=== PATIENT | male | born 1950 | race Caucasian/White ===

== ENCOUNTER 2016-09-11 12:06 | Emergency (ER) | payer MEDICARE, BC ==
[~2016-09-11] VITALS: Ht 180.3 cm; Wt 111.5 kg
[2016-09-11 12:06] VITALS: Ht 180.3 cm; Wt 111.5 kg
[~2016-09-11 12:06] MED LIST: ACET-2321 PO; ALLO300T2 PO; AMLO5TAB PO; ASPI-917 PO; CHOL100092 PO; FLEC100T21 PO; GABA-336 PO; LOSA25TA34 PO; OXYC5TAB84 PO; POLY17PO18 PO; TORS10TA17 PO; [UNRECOGNIZED DRUG - CODE] PO
--- NOTE | 2016-09-11 12:10 | NUR ---
EKG OBTAINED AND RESULTS GIVEN TO Hussein STERN APRN A-FIB WITH HR 122 NOTED
--- OUTSIDE RECORDS SUMMARY | 2016-09-11 12:10 | XMS REPORT ---
Author Author [place], [facility] - Organization Unknown Address Unknown Phone Unavailable Allergies, Adverse Reactions, Alerts * Codeine causes nausea/vomitting. * Lortab causes NAUSEA/VOMITING and Unknown NAUSEA/VOMITING. * Demerol causes NAUSEA/VOMITING. * Morphine causes NAUSEA/VOMITING. * No Latex Allergy. * No IV Contrast Allergy. * No Known Food Allergies. Problems * Cellulitis of Leg* Status:Active. * Empyema* Status:Resolved. * Knowledge Low Level* Status:Active. * Pain* Status:Active. * Pleural Effusion* Status:Resolved. * Sinus Bradycardia* Status:Active. * Skin Integrity Impairment* Status:Active. * Tissue Perfusion Impairment* Status:Active. Procedures No relevant procedures performed. Medication It is the responsibility of the patient or patient malt liquors sales representative to confirm the list of medications with either the patient's personal care provider or the patient's follow-up care provider to ensure the patient has an appropriate list of medications to take at home. Discharge medications* VANCOMYCIN 1 GM IN NS 250ML Intravenous Q24H, Clinician Dir:INFUSE OVER 60 MINUTES x 7 days * torsemide 20 mg Tablet, Ordered By: Tracy Wong Directions: 1 tablet oral daily * potassium chloride (Klor-Con M20) 20 mEq tablet,ER particles/crystals, Ordered By: Tracy Wong Directions: 1 tablet oral twice a day during meal * oxyCODONE-acetaminophen (Percocet) 5 mg-325 mg Tablet, Ordered By: Tracy Wong Directions: 1-2 TABS oral every four hours PRN MODERATE PAIN * epoetin sasha (Epogen) 10,000 unit/mL Solution, Ordered By: Tracy Wong Directions: 1 mL subcutaneous every Thursday Additional Instructions: GIVE ON TUESDAYS .outpatient with Dr Curtis's office * cyclophosphamide 50 mg Tablet, Ordered By: Tracy Wong Directions: 2 tablet oral daily * clindamycin HCl 150 mg Capsule, Ordered By: Tracy Wong Directions: 3 capsule oral every eight hours Additional Instructions: x 7 more days * calcium carbonate 200 mg calcium (500 mg) Tablet, Chewable, Ordered By: Tracy Wong Directions: 2 tablet oral twice a day * amLODIPine 5 mg Tablet, Ordered By: Tracy Wong Directions: 1 tablet oral daily * allopurinol 300 mg Tablet, Ordered By: Tracy Wong Directions: 1 tablet oral daily with dinner * acetaminophen (Mapap (acetaminophen)) 325 mg Tablet, Ordered By: Tracy Wong Directions: 325-650 MG oral every four hours PRN MILD PAIN AND/OR FEVER * saw palmetto 450mg Capsule, Ordered By: Tracy Wong Directions: 1 capsule oral twice a day * OTC Metamucil 1 tablespoon oral daily as needed for constipation; Last dose taken at home: few days ago * Eliquis 5mg 1 tablet oral twice a day; Last dose taken at home: 02/01/2013 AM * OTC Fish Oil 1000 mg 1 capsule oral twice a day; Last dose taken at home: 02/01 AM * Follow up with Dr Curtis in 1 week. Follow up with Dr Mcgowan 02/16/13 at 10 am. Follow up with Dr Elizondo in [place] in 1 week. * flecainide 100 mg Tablet, Ordered By: Tracy Wong Directions: 1 tablet oral twice a day Stopped medications* amoxicillin-pot clavulanate (Augmentin) 875 mg-125 mg Tablet Directions: 1 tablet oral twice a day Additional Instructions: x 10 days * losartan 100 mg Tablet Directions: 1 tablet oral daily * metoLAZOne 2.5 mg Tablet Directions: 1 tablet oral daily PRN shortness of breath * Stopped Medication: IV Solunedrol; Regamin complete: 12/28/2012 - 12/30/2012 * Stopped Medication: Prednisone 50mg oral daily; Regamin complete: 12/31/2012 - 01/25/2013 Results LAB--CHEMISTRY from 02/01/2013 8:45 PMProtein 4.4 g/dL L (6.1-7.9 g/dL) C-Reactive Protein (CRP) 6.8 mg/dL H (0.0-0.9 mg/dL) Sodium 140 mEq/L (136-144 mEq/L) Magnesium 1.9 mg/dL (1.8-2.5 mg/dL) Potassium 4.5 mEq/L (3.6-5.1 mEq/L) Glucose 95 mg/dL (70-100 mg/dL) Globulin 2.9 g/dL (1.9-4.3 g/dL) eGFR 38 A (>60- ) Creatinine 1.81 mg/dL H (0.64-1.27 mg/dL) CO2 29 mEq/L (22-32 mEq/L) Chloride 102 mEq/L (99-109 mEq/L) Calcium 7.8 mg/dL L (8.6-10.0 mg/dL) BUN 31 mg/dL H (4-20 mg/dL) Bilirubin Total 0.8 mg/dL (0.2-1.2 mg/dL) AST (SGOT) 22 U/L (15-41 U/L) ALT (SGPT) 17 U/L (17-63 U/L) Alkaline Phosphatase 41 U/L (26-104 U/L) Albumin 1.5 g/dL L (3.5-4.8 g/dL) Anion Gap 9 (3-20 ) LAB--CHEMISTRY from 02/02/2013 5:38 AMPhosphorus 4.4 mg/dL (2.4-4.7 mg/dL) Sodium 139 mEq/L (136-144 mEq/L) Magnesium 1.9 mg/dL (1.8-2.5 mg/dL) Potassium 4.3 mEq/L (3.6-5.1 mEq/L) Glucose 95 mg/dL (70-100 mg/dL) eGFR 39 A (>60- ) Creatinine 1.78 mg/dL H (0.64-1.27 mg/dL) CO2 28 mEq/L (22-32 mEq/L) Chloride 105 mEq/L (99-109 mEq/L) Calcium 7.4 mg/dL L (8.6-10.0 mg/dL) BUN 30 mg/dL H (4-20 mg/dL) Albumin 1.4 g/dL L (3.5-4.8 g/dL) Anion Gap 6 (3-20 ) LAB--CHEMISTRY from 02/02/2013 1:41 PMPercent Saturation 16 % (11-46 %) Iron Binding Capacity 173 ug/dL L (268-490 ug/dL) Transferrin 116 mg/dL L (180-329 mg/dL) Iron 28 ug/dL L (65-175 ug/dL) Ferritin 454 ng/mL H (24-340 ng/mL) Folate 19.8 ng/mL (2.0-20.0 ng/mL) Vitamin B12 524 pg/mL (211-911 pg/mL) LAB--CHEMISTRY from 02/03/2013 5:50 AMPhosphorus 4.2 mg/dL (2.4-4.7 mg/dL) Sodium 138 mEq/L (136-144 mEq/L) Magnesium 1.9 mg/dL (1.8-2.5 mg/dL) Potassium 4.0 mEq/L (3.6-5.1 mEq/L) Glucose 98 mg/dL (70-100 mg/dL) eGFR 37 A (>60- ) Creatinine 1.86 mg/dL H (0.64-1.27 mg/dL) CO2 28 mEq/L (22-32 mEq/L) Chloride 105 mEq/L (99-109 mEq/L) Calcium Ionized 1.14 mmol/L L (1.19-1.41 mmol/L) Calcium 7.3 mg/dL L (8.6-10.0 mg/dL) BUN 31 mg/dL H (4-20 mg/dL) Albumin 1.7 g/dL L (3.5-4.8 g/dL) Anion Gap 5 (3-20 ) LAB--CHEMISTRY from 02/04/2013 5:00 AMPhosphorus 4.0 mg/dL (2.4-4.7 mg/dL) Sodium 137 mEq/L (136-144 mEq/L) Magnesium 2.1 mg/dL (1.8-2.5 mg/dL) Potassium 3.5 mEq/L L (3.6-5.1 mEq/L) Glucose 102 mg/dL H (70-100 mg/dL) eGFR 36 A (>60- ) Creatinine 1.91 mg/dL H (0.64-1.27 mg/dL) CO2 27 mEq/L (22-32 mEq/L) Chloride 107 mEq/L (99-109 mEq/L) Calcium Ionized 1.13 mmol/L L (1.19-1.41 mmol/L) Calcium 7.3 mg/dL L (8.6-10.0 mg/dL) BUN 32 mg/dL H (4-20 mg/dL) Albumin 2.0 g/dL L (3.5-4.8 g/dL) Anion Gap 3 (3-20 ) LAB--CHEMISTRY from 02/05/2013 6:20 AMPhosphorus 4.0 mg/dL (2.4-4.7 mg/dL) Sodium 141 mEq/L (136-144 mEq/L) Magnesium 2.2 mg/dL (1.8-2.5 mg/dL) Potassium 3.7 mEq/L (3.6-5.1 mEq/L) Glucose 101 mg/dL H (70-100 mg/dL) eGFR 31 A (>60- ) Creatinine 2.15 mg/dL H (0.64-1.27 mg/dL) CO2 27 mEq/L (22-32 mEq/L) Chloride 104 mEq/L (99-109 mEq/L) Calcium Ionized 1.13 mmol/L L (1.19-1.41 mmol/L) Calcium 7.4 mg/dL L (8.6-10.0 mg/dL) BUN 30 mg/dL H (4-20 mg/dL) Albumin 2.2 g/dL L (3.5-4.8 g/dL) Anion Gap 10 (3-20 ) LAB--CHEMISTRY from 02/06/2013 6:51 AMPhosphorus 4.3 mg/dL (2.4-4.7 mg/dL) Sodium 140 mEq/L (136-144 mEq/L) Magnesium 2.2 mg/dL (1.8-2.5 mg/dL) Potassium 3.6 mEq/L (3.6-5.1 mEq/L) Glucose 104 mg/dL H (70-100 mg/dL) eGFR 26 A (>60- ) Creatinine 2.49 mg/dL H (0.64-1.27 mg/dL) CO2 26 mEq/L (22-32 mEq/L) Chloride 105 mEq/L (99-109 mEq/L) Calcium Ionized 1.13 mmol/L L (1.19-1.41 mmol/L) Calcium 7.4 mg/dL L (8.6-10.0 mg/dL) BUN 34 mg/dL H (4-20 mg/dL) Albumin 2.0 g/dL L (3.5-4.8 g/dL) Anion Gap 9 (3-20 ) LAB--CHEMISTRY from 02/07/2013 5:27 AMAnion Gap 6 (3-20 ) Albumin 1.8 g/dL L (3.5-4.8 g/dL) BUN 29 mg/dL H (4-20 mg/dL) Calcium 7.3 mg/dL L (8.6-10.0 mg/dL) Calcium Ionized 1.18 mmol/L L (1.19-1.41 mmol/L) Chloride 107 mEq/L (99-109 mEq/L) CO2 26 mEq/L (22-32 mEq/L) Creatinine 2.08 mg/dL H (0.64-1.27 mg/dL) eGFR 32 A (>60- ) Glucose 104 mg/dL H (70-100 mg/dL) Potassium 3.7 mEq/L (3.6-5.1 mEq/L) Magnesium 2.3 mg/dL (1.8-2.5 mg/dL) Sodium 139 mEq/L (136-144 mEq/L) Phosphorus 3.7 mg/dL (2.4-4.7 mg/dL) C-Reactive Protein (CRP) 5.2 mg/dL H (0.0-0.9 mg/dL) LAB--CHEMISTRY from 02/08/2013 6:03 AMAnion Gap 5 (3-20 ) Albumin 1.7 g/dL L (3.5-4.8 g/dL) BUN 24 mg/dL H (4-20 mg/dL) Calcium 7.3 mg/dL L (8.6-10.0 mg/dL) Calcium Ionized 1.16 mmol/L L (1.19-1.41 mmol/L) Chloride 107 mEq/L (99-109 mEq/L) CO2 26 mEq/L (22-32 mEq/L) Creatinine 1.89 mg/dL H (0.64-1.27 mg/dL) eGFR 36 A (>60- ) Glucose 90 mg/dL (70-100 mg/dL) Potassium 4.0 mEq/L (3.6-5.1 mEq/L) Magnesium 2.4 mg/dL (1.8-2.5 mg/dL) Sodium 138 mEq/L (136-144 mEq/L) Phosphorus 3.5 mg/dL (2.4-4.7 mg/dL) LAB--HEMATOLOGY from 02/01/2013 8:45 PMHCT 31.6 % L (42.0-52.0 %) HGB 10.5 g/dl L (14.0-18.0 g/dl) MCH 30.0 pg (27.0-32.0 pg) MCHC 33.2 g/dL (32.0-36.0 g/dL) MCV 90.3 fL (82.0-99.0 fL) MPV 9.3 fL L (9.4-12.3 fL) Platelet Count 111 K/uL L (150-400 K/uL) RBC 3.50 M/uL L (4.60-6.20 M/uL) RDW 14.3 % (11.5-14.5 %) WBC 7.9 K/uL (4.8-10.8 K/uL) LAB--HEMATOLOGY from 02/02/2013 5:38 AMHCT 31.1 % L (42.0-52.0 %) HGB 10.1 g/dl L (14.0-18.0 g/dl) MCH 29.0 pg (27.0-32.0 pg) MCHC 32.5 g/dL (32.0-36.0 g/dL) MCV 89.4 fL (82.0-99.0 fL) MPV 10.1 fL (9.4-12.3 fL) Platelet Count 115 K/uL L (150-400 K/uL) RBC 3.48 M/uL L (4.60-6.20 M/uL) RDW 14.2 % (11.5-14.5 %) WBC 6.5 K/uL (4.8-10.8 K/uL) LAB--HEMATOLOGY from 02/02/2013 1:41 PMReticulocyte Count 2.0 % (0.6-2.5 %) LAB--HEMATOLOGY from 02/03/2013 5:49 AMWBC 5.9 K/uL (4.8-10.8 K/uL) RDW 14.1 % (11.5-14.5 %) RBC 3.20 M/uL L (4.60-6.20 M/uL) Platelet Count 120 K/uL L (150-400 K/uL) MPV 9.7 fL (9.4-12.3 fL) MCV 88.8 fL (82.0-99.0 fL) MCHC 32.7 g/dL (32.0-36.0 g/dL) MCH 29.1 pg (27.0-32.0 pg) HGB 9.3 g/dl L (14.0-18.0 g/dl) HCT 28.4 % L (42.0-52.0 %) LAB--HEMATOLOGY from 02/04/2013 5:00 AMHCT 26.0 % L (42.0-52.0 %) HGB 8.6 g/dl L (14.0-18.0 g/dl) MCH 29.4 pg (27.0-32.0 pg) MCHC 33.1 g/dL (32.0-36.0 g/dL) MCV 88.7 fL (82.0-99.0 fL) MPV 9.2 fL L (9.4-12.3 fL) Platelet Count 134 K/uL L (150-400 K/uL) RBC 2.93 M/uL L (4.60-6.20 M/uL) RDW 14.2 % (11.5-14.5 %) WBC 5.1 K/uL (4.8-10.8 K/uL) LAB--HEMATOLOGY from 02/05/2013 6:20 AMWBC 4.8 K/uL (4.8-10.8 K/uL) RDW 14.1 % (11.5-14.5 %) RBC 2.80 M/uL L (4.60-6.20 M/uL) Platelet Count 153 K/uL (150-400 K/uL) MPV 9.4 fL (9.4-12.3 fL) MCV 89.3 fL (82.0-99.0 fL) MCHC 32.8 g/dL (32.0-36.0 g/dL) MCH 29.3 pg (27.0-32.0 pg) HGB 8.2 g/dl L (14.0-18.0 g/dl) HCT 25.0 % L (42.0-52.0 %) LAB--HEMATOLOGY from 02/06/2013 6:51 AMHCT 24.2 % L (42.0-52.0 %) HGB 8.2 g/dl L (14.0-18.0 g/dl) MCH 29.9 pg (27.0-32.0 pg) MCHC 33.9 g/dL (32.0-36.0 g/dL) MCV 88.3 fL (82.0-99.0 fL) MPV 9.5 fL (9.4-12.3 fL) Platelet Count 164 K/uL (150-400 K/uL) RBC 2.74 M/uL L (4.60-6.20 M/uL) RDW 14.3 % (11.5-14.5 %) WBC 4.3 K/uL L (4.8-10.8 K/uL) LAB--HEMATOLOGY from 02/07/2013 5:28 AMWBC 3.4 K/uL L (4.8-10.8 K/uL) RDW 14.2 % (11.5-14.5 %) RBC 2.86 M/uL L (4.60-6.20 M/uL) Platelet Count 174 K/uL (150-400 K/uL) MPV 9.1 fL L (9.4-12.3 fL) MCV 87.8 fL (82.0-99.0 fL) MCHC 33.5 g/dL (32.0-36.0 g/dL) MCH 29.4 pg (27.0-32.0 pg) HGB 8.4 g/dl L (14.0-18.0 g/dl) HCT 25.1 % L (42.0-52.0 %) LAB--HEMATOLOGY from 02/08/2013 6:03 AMHCT 25.6 % L (42.0-52.0 %) HGB 8.5 g/dl L (14.0-18.0 g/dl) MCH 29.2 pg (27.0-32.0 pg) MCHC 33.2 g/dL (32.0-36.0 g/dL) MCV 88.0 fL (82.0-99.0 fL) MPV 9.1 fL L (9.4-12.3 fL) Platelet Count 217 K/uL (150-400 K/uL) RBC 2.91 M/uL L (4.60-6.20 M/uL) RDW 14.3 % (11.5-14.5 %) WBC 4.0 K/uL L (4.8-10.8 K/uL) LAB--IMMUNOLOGY from 02/06/2013 6:28 PMProtein mg/dL, Urine >1500 mg/dL H (0-9 mg /dL) LAB--MICROBIOLOGY from 02/01/2013 8:40 PMBlood Culture #1 Source: Blood Collected: 02/01/13 20:40 Site: Received : 02/01/13 20:50 Order#: [id number] Blood Culture #1 FINAL 02/07/13 10:15 No growth after 5 days of incubation. HANEY FOR RESULTS: * - NEW RESULT - RESULT WAS MODIFIED AFTER FINAL STATUS SET LAB--MICROBIOLOGY from 02/01/2013 8:45 PMBlood Culture #2 Source: Blood Collected: 02/01/13 20:45 Site: Received : 02/01/13 20:50 Order#: [id number] Blood Culture #2 FINAL 02/07/13 10:15 No growth after 5 days of incubation. HANEY FOR RESULTS: * - NEW RESULT - RESULT WAS MODIFIED AFTER FINAL STATUS SET LAB--TOXICOLOGY & THERAPEUTIC DRUGS from 02/02/2013 1:41 PMVancomycin Random 6.6 ug/mL L (10.0-40.0 ug/mL) LAB--TOXICOLOGY & THERAPEUTIC DRUGS from 02/03/2013 5:50 AMVancomycin Random 10.0 ug/mL (10.0-40.0 ug/mL) LAB--TOXICOLOGY & THERAPEUTIC DRUGS from 02/04/2013 5:00 AMVancomycin Random 11.2 ug/mL (10.0-40.0 ug/mL) LAB--TOXICOLOGY & THERAPEUTIC DRUGS from 02/05/2013 6:20 AMVancomycin Random 12.1 ug/mL (10.0-40.0 ug/mL) LAB--TOXICOLOGY & THERAPEUTIC DRUGS from 02/06/2013 6:51 AMVancomycin Random 13.2 ug/mL (10.0-40.0 ug/mL) LAB--URINE TESTS from 02/01/2013 11:00 PMWBC 2-5 /HPF (0-4 /HPF) RBC 2-5 /HPF (0-2 /HPF) Mucus Present Hyaline Casts 1-3 /LPF (0-3 /LPF) Epithelial Cells 0-2 /HPF Bacteria Numerous A Urobilinogen Negative mg/dL (-<1.0 mg/dL) Collection Type: Clean Catch Specific [place] 1.022 (1.003-1.030 ) Protein Pos 3+ A (Negative ) pH, Urine 7.0 (5.0-8.0 ) Nitrites Negative (Negative ) Leukocytes Esterase Negative (Negative ) Ketones, Urine Negative (Negative ) Glucose Trace A (Negative ) Color Yellow Blood Pos 1+ A (Negative ) Bilirubin Negative (Negative ) Appearance Clear LAB--URINE TESTS from 02/06/2013 6:28 PMProt/Creat Ratio, Urine NA Protein mg/dL, Urine >1500 mg/dL H (0-9 mg/dL) Creatinine mg/dL, Urine 131 mg/dL LAB--URINE TESTS from 02/07/2013 3:42 AMWBC 0-2 /HPF (0-4 /HPF) RBC 2-5 /HPF (0-2 /HPF) Mucus Present Epithelial Cells 0-2 /HPF Bacteria Moderate A Urobilinogen Negative mg/dL (-<1.0 mg/dL) Collection Type: Clean Catch Specific [place] 1.024 (1.003-1.030 ) Protein Pos 3+ A (Negative ) pH, Urine 7.0 (5.0-8.0 ) Nitrites Negative (Negative ) Leukocytes Esterase Negative (Negative ) Ketones, Urine Negative (Negative ) Glucose Pos 1+ A (Negative ) Color Yellow Blood Trace A (Negative ) Bilirubin Negative (Negative ) Appearance Clear
--- OUTSIDE RECORDS SUMMARY | 2016-09-11 12:10 | XMS REPORT ---
Author Author [facility], [facility] - [facility] Unknown Address Unknown Phone Unavailable Allergies, Adverse Reactions, Alerts * Codeine causes nausea/vomitting. * Lortab causes NAUSEA/VOMITING and Unknown NAUSEA/VOMITING. * Demerol causes NAUSEA/VOMITING. * Morphine causes NAUSEA/VOMITING. * No Latex Allergy. * No IV Contrast Allergy. * No Known Food Allergies. Problems * Empyema* Status:Active. * Knowledge Low Level* Status:Active. * Pain* Status:Active. * Pleural Effusion* Status:Resolved. * Sinus Bradycardia* Status:Active. * Skin Integrity Impairment* Status:Active. * Tissue Perfusion Impairment* Status:Active. Procedures No relevant procedures performed. Medication It is the responsibility of the patient or patient lead generation representative to confirm the list of medications with either the patient's personal care provider or the patient's follow-up care provider to ensure the patient has an appropriate list of medications to take at home. Discharge medications* aspirin 325 mg Tablet, Ordered By: ANEL KLINEMEALTON Directions: 1 tablet oral daily * saw palmetto 450mg Capsule, Ordered By: ANEL KLINEMEALTON Directions: 1 capsule oral daily every evening * docosahexanoic acid-epa (Fish Oil) 120 mg-180 mg Capsule, Ordered By: ANEL KLINEMEALTON Directions: 1 capsule oral daily before breakfast * metoLAZOne 2.5 mg Tablet, Ordered By: ANEL KLINEMEIDA Directions: 1 tablet oral daily PRN shortness of breath * potassium chloride (Klor-Con) 20 mEq Packet, Ordered By: ANEL KLINEMEALTON Directions: 1 tablet oral daily during meal * allopurinol 300 mg Tablet, Ordered By: ANEL KLINEMEIDA Directions: 1 tablet oral daily * torsemide 60 mg Tablet, Ordered By: ANEL KLINEMEIDA Directions: 1 tablet oral daily * losartan 100 mg Tablet, Ordered By: ANEL D DALMEIDA Directions: 1 tablet oral daily * flecainide 100 mg Tablet, Ordered By: ANEL KAPLAN Directions: 1 tablet oral twice a day Stopped medications* fiber capsules 3 tabs by mouth daily last dose 12/21/12 @ 2200 Results LAB--CHEMISTRY from 12/22/2012 8:44 AMAnion Gap 8 (3-20 ) Albumin 2.3 g/dL L (3.5-4.8 g/dL) BUN 37 mg/dL H (4-20 mg/dL) Calcium 7.8 mg/dL L (8.6-10.0 mg/dL) Chloride 105 mEq/L (99-109 mEq/L) CO2 26 mEq/L (22-32 mEq/L) Creatinine 2.14 mg/dL H (0.64-1.27 mg/dL) eGFR 31 A (>60- ) Glucose 96 mg/dL (70-100 mg/dL) Potassium 3.6 mEq/L (3.6-5.1 mEq/L) Sodium 139 mEq/L (136-144 mEq/L) Phosphorus 3.2 mg/dL (2.4-4.7 mg/dL) LAB--CHEMISTRY from 12/23/2012 3:02 AMAnion Gap 4 (3-20 ) Albumin 1.8 g/dL L (3.5-4.8 g/dL) BUN 35 mg/dL H (4-20 mg/dL) Calcium 7.6 mg/dL L (8.6-10.0 mg/dL) Chloride 107 mEq/L (99-109 mEq/L) CO2 28 mEq/L (22-32 mEq/L) Creatinine 1.90 mg/dL H (0.64-1.27 mg/dL) eGFR 36 A (>60- ) Glucose 89 mg/dL (70-100 mg/dL) Potassium 3.7 mEq/L (3.6-5.1 mEq/L) Magnesium 2.2 mg/dL (1.8-2.5 mg/dL) Sodium 139 mEq/L (136-144 mEq/L) Phosphorus 3.9 mg/dL (2.4-4.7 mg/dL) LAB--COAG STUDIES from 12/22/2012 8:44 AMINR 0.9 (0.9-1.2 ) PTT 29.4 sec (25.0-35.0 sec) LAB--HEMATOLOGY from 12/22/2012 8:44 AMAbsolute Basophils 0.07 THOUS (0.00-0.20 THOUS) Absolute Eosinophils 0.36 THOUS (0.00-0.50 THOUS) Absolute Lymphocytes 1.19 THOUS (0.80-3.30 THOUS) Absolute Monocytes 0.52 THOUS (0.30-1.00 THOUS) Absolute Neutrophils 5.15 THOUS (1.90-7.00 THOUS) HCT 42.0 % (42.0-52.0 %) HGB 14.1 g/dl (14.0-18.0 g/dl) MCH 29.9 pg (27.0-32.0 pg) MCHC 33.6 g/dL (32.0-36.0 g/dL) MCV 89.2 fL (82.0-99.0 fL) MPV 9.6 fL (9.4-12.3 fL) Platelet Count 181 K/uL (150-400 K/uL) RBC 4.71 M/uL (4.60-6.20 M/uL) RDW 13.7 % (11.5-14.5 %) WBC 7.3 K/uL (4.8-10.8 K/uL) Basophils 1 % (0-2 %) Eosinophils 5 % H (0-4 %) Immature Granulocytes 0.4 % (0.0-1.0 %) Lymphocytes 16 % L (20-46 %) Monocytes 7 % (4-11 %) Neutrophils 70 % (51-75 %) LAB--HEMATOLOGY from 12/22/2012 8:08 PMAbsolute Basophils 0.11 THOUS (0.00-0.20 THOUS) Absolute Eosinophils 0.34 THOUS (0.00-0.50 THOUS) Absolute Lymphocytes 1.36 THOUS (0.80-3.30 THOUS) Absolute Monocytes 0.47 THOUS (0.30-1.00 THOUS) Absolute Neutrophils 3.67 THOUS (1.90-7.00 THOUS) HCT 38.5 % L (42.0-52.0 %) HGB 12.7 g/dl L (14.0-18.0 g/dl) MCH 29.7 pg (27.0-32.0 pg) MCHC 33.0 g/dL (32.0-36.0 g/dL) MCV 90.2 fL (82.0-99.0 fL) MPV 9.8 fL (9.4-12.3 fL) Platelet Count 151 K/uL (150-400 K/uL) RBC 4.27 M/uL L (4.60-6.20 M/uL) RDW 13.7 % (11.5-14.5 %) WBC 6.0 K/uL (4.8-10.8 K/uL) Basophils 2 % (0-2 %) Eosinophils 6 % H (0-4 %) Immature Granulocytes 0.3 % (0.0-1.0 %) Lymphocytes 23 % (20-46 %) Monocytes 8 % (4-11 %) Neutrophils 62 % (51-75 %) LAB--HEMATOLOGY from 12/23/2012 3:02 AMAbsolute Basophils 0.05 THOUS (0.00-0.20 THOUS) Absolute Eosinophils 0.29 THOUS (0.00-0.50 THOUS) Absolute Lymphocytes 1.37 THOUS (0.80-3.30 THOUS) Absolute Monocytes 0.45 THOUS (0.30-1.00 THOUS) Absolute Neutrophils 3.45 THOUS (1.90-7.00 THOUS) HCT 37.6 % L (42.0-52.0 %) HGB 12.4 g/dl L (14.0-18.0 g/dl) MCH 29.5 pg (27.0-32.0 pg) MCHC 33.0 g/dL (32.0-36.0 g/dL) MCV 89.3 fL (82.0-99.0 fL) MPV 10.1 fL (9.4-12.3 fL) Platelet Count 132 K/uL L (150-400 K/uL) RBC 4.21 M/uL L (4.60-6.20 M/uL) RDW 13.7 % (11.5-14.5 %) WBC 5.6 K/uL (4.8-10.8 K/uL) Basophils 1 % (0-2 %) Eosinophils 5 % H (0-4 %) Immature Granulocytes 0.5 % (0.0-1.0 %) Lymphocytes 24 % (20-46 %) Monocytes 8 % (4-11 %) Nucleated RBC Automated 0.0 /100 WBC (0 /100 WBC) Neutrophils 61 % (51-75 %)
--- OUTSIDE RECORDS SUMMARY | 2016-09-11 12:10 | XMS REPORT | Continuity of Care Document ---
Author Author [facility] Organization [facility] Address Unknown Phone Unavailable Support Name Relationship Address Phone ISIDRO SHEIKH MD Caregiver [address] [place] [address] Unavailable ALEXANDRA EVANS MD Caregiver [address] [place] [address] Unavailable ALEXANDRA EVANS MD Caregiver [address] [place] [address] Unavailable MASOUD FERGUSON Next Of Kin [address] [id number] Insurance Providers Guarantor MartyBen Justin Address [address] [place] [address] Email [email or web address] Payer [place] Other Policy Number [id number] Subscriber's Name Ben Ferguson Relationship 18 Self Group Number [id number] Payer Medicare Policy Number [id number] Subscriber's Name Ben Ferguson Justin Relationship 18 Self Advance Directives Directive Response Recorded Date/Time Ordered Resuscitation Status Full Code 08/25/16 11:15am Resuscitation Documents on File No 08/26/16 1:06pm DPOA for Healthcare Only No 08/26/16 1:06pm Living Will No 08/26/16 1:06pm Problems Active Problems Medical Problem Onset Date Status Atrial fibrillation Unknown Chronic Chronic kidney disease (CKD) Unknown Chronic Degenerative arthritis of left knee Unknown Chronic Hyperlipemia Unknown Hypertension Unknown Hyperuricemia Unknown MOISES (obstructive sleep apnea) Unknown Obesity (BMI 30-39.9) Unknown Past Problems Medical Problem Onset Date Allergic reaction Unknown Allergic reaction Unknown Hypovolemia Unknown Orthostatic hypotension Unknown Orthostatic hypotension Unknown Medications Current Home Medications Medication Dose Units Route Directions Days Qty Instructions Start Date Acetaminophen (Tylenol) 325 Mg Tablet 650 Mg Oral Four Times Daily 100 Tablet 08/27/16 Allopurinol 300 Mg Tablet 1 Tab Oral Daily 08/20/16 Amlodipine Besylate (Norvasc) 5 Mg Tablet 5 Mg Oral Bedtime 08/01 Aspirin (Aspirin Ec) 325 Mg Tablet. 325 Mg Oral Twice A Day 84 Tablet 08/27/16 Cholecalciferol (Vitamin D3) (Vitamin D3) 1,000 Unit Capsule 1 Cap Oral Daily 08/20/16 Flecainide Acetate 100 Mg Tablet 100 Mg Oral Three Times A Day Gabapentin 100 Mg Capsule 1 Cap Oral Twice A Day 08/20/16 Losartan Potassium 25 Mg Tablet 1 Tab Oral Daily 08/20/16 Oxycodone Hcl 5 Mg Tablet 5-15 Mg Oral Every 3 Hours as needed for Breakthrough Pain 60 Tablet 08/27/16 Polyethylene Glycol 3350 (Healthylax) 17 Gm Powd.pack 17 G Oral Daily 30 Packet 08/27/16 [place] Fruit (Saw [place]) 450 Mg Capsule 450 Mg Oral Twice A Day 06/03/10 Torsemide 10 Mg Tablet 10 Mg Oral Daily 08/20/16 Past Home Medications Medication Directions Ordered Status Amlodipine Besylate (Norvasc) 5 Mg Tablet, 5 Mg Oral D 06/03/10 Discontinued Aspirin 81 Mg Tab.chew, 1 Tab Oral Daily 08/20/16 Discontinued Aspirin 325 Mg Tablet, 320 Mg Oral Daily 06/03/10 Discontinued Calcium Polycarbophil (Fibercon) 625 Mg Tablet, 625 Mg Oral Daily 06/03/10 Discontinued Cytoxan , Daily 01/28/13 Discontinued Eliquis , 5 Mg Oral Twice A Day 01/28/13 Discontinued Furosemide (Lasix) 20 Mg Tablet, 10 Mg Oral Daily 10/07/10 Discontinued Losartan Potassium (Cozaar) 100 Mg Tablet, 100 Mg Oral Daily 07/27/11 Discontinued Meloxicam (Mobic) 7.5 Mg Tablet, 7.5 Mg Oral Daily 06/03/10 Discontinued Metolazone 2.5 Mg Tablet, 2.5 Mg Oral As Needed 01/28/13 Discontinued Olmesartan/Hydrochlorothiazide (Benicar Hct 40-25 Mg Tablet) 1 Tab Tablet, 1 Tab Oral Daily 06/03/10 Discontinued Telmisartan (Micardis) 80 Mg Tablet, 80 Mg Oral Daily 10/07/10 Discontinued Warfarin Sodium (Coumadin) 7.5 Mg Tablet, 7.5 Mg Oral Daily 09/21/11 Discontinued Warfarin Sodium (Coumadin) 5 Mg Tablet, 5 Mg Oral Daily 09/21/11 Discontinued Social History Social History Problem Response Recorded Date/Time Onset Date Status Reason for Hospitalization TKA 08/27/2016 3:20pm Not Applicable Not Applicable Hx Substance Use No 08/26/2016 9:17am Not Applicable Not Applicable Hx Alcohol Use Y 1-2 X WEEK 08/26/2016 9:17am Not Applicable Not Applicable Has the pt used tobacco in the last 12 months No 08/26/2016 9:17am Not Applicable Not Applicable Tobacco Usage none 01/11/2014 4:18am Not Applicable Not Applicable Query Response Start Date Stop Date Smoking Status Former smoker Hospital Discharge Instructions Instructions: Care Instructions: Reason for Hospitalization: TKA I was in the hospital because (patient own words): PATIENT STATES, "KNEE REPLACEMENT" Discharge Diet: Resume normal diet as tolerated Discharge Activity: Continue the exercises you were given in the hospital three times a day. Your therapist will provide you with a home therapy program prior to your hospital discharge. As you feel stronger, increase the number of repetitions you do in each session. Please check with us before you swim, use a whirlpool, drive or ride a bicycle. Follow Up Appointments: Follow up as scheduled Pending Lab / Results: No Pending Lab Patient Instructions: Driving may be resumed once you are no longer taking narcotic medications and feel you can safely operate the vehicle. You may wish to practice in an empty parking lot at first. Keep in mind that your reaction time will be delayed for up to 6 weeks after surgery. Contact your surgeon for antibiotics to take before having dental work. Wound/Incision Care: In most cases, a Mepilex dressing will be placed at the time of surgery. This dressing will not need to be covered while showering. Leave dressing in place until your follow-up appointment as long as it remains clean, dry and stuck down well around the edges. Call your Doctor if you encounter a problem with your dressing. Please avoid submerging your incision until it is completely healed, once the Mepilex dressing is removed. This includes bathtubs, swimming pools, and hot tubs. DO NOT USE ALCOHOL, PEROXIDE, OR OINTMENTS of any kind on your incision. Pain Scale Utilized to Educate Patient: 0-10 Pain Scale Pain Management/Treatment: Ice packs may be used, and will also help with the pain. You will be given a prescription for pain. Expected Signs/Symptoms: Some swelling around the incision, as well as in your feet and legs is normal. To help with this, elevate your feet on a footstool when sitting in a chair, and do the ankle pumps and circles whenever you are sitting still. Muscle action helps to move collected fluid out of the tissues and improve circulation. Ice packs may be used, and will also help with the pain. Report any persistent swelling, calf tenderness, increase in pain, or pain in the calf with warmth, or redness to your doctor. Notify Physician If: Report any complications to my office immmediately. This includes excessive bleeding, wound breakdown, redness around the wound, uncontrolled pain, or fever over 101 on 3 different measurements. Eat a balanced diet and get plenty of rest. During Business Hours:: If you have any questions or concerns, please call during regular office hours ([phone]). After Business Hours:: If you have any problems or need to reach a physician after hours or on the weekend please call the hospital's main number [phone] to have your physician paged. Condition at time of discharge: Good Plan of Care Discharge Date 08/27/16 4:20pm Disposition 01 DISCHARGED HOME, SELF-CARE Instructions/Education Provided [facility] Postop Instructions [facility] General Instructions Prescriptions See Medication Section Additional Instructions/Education FOLLOW UP WITH DR EVANS 3-29-17 @ 8:30AM [facility] ON 08/28/2016 AT 1:00PM FOR PHYSICAL THERAPY EVAL. PHONE Care Plan and Goals See Discharge Instructions Section Functional Status Query Response Date Recorded Mobility Status Ambulatory August 27, 2016 3:20pm Assistive Devices None August 27, 2016 3:20pm Activity Limitations Pain August 27, 2016 3:20pm Feeding Ability Independent August 27, 2016 3:20pm Toileting Ability Independent August 27, 2016 3:20pm Grooming Ability Independent August 27, 2016 3:20pm Dressing Ability Independent August 27, 2016 3:20pm Driving Ability Independent August 27, 2016 3:20pm Housework Ability Independent August 27, 2016 3:20pm Meal Preparation Ability Independent August 27, 2016 3:20pm Stair Climbing Ability Independent August 27, 2016 3:20pm Ability to complete ADL's impeded by No change August 27, 2016 3:20pm Cognitive/Perceptual Impairments Impaired vision Impaired hearing August 27, 2016 3:20pm Visual Assistive Devices Glasses With patient August 26, 2016 1:10pm Preferred Method of Learning Demonstration Hands on August 26, 2016 1:10pm Allergies, Adverse Reactions, Alerts Allergen Type Severity Reaction Status Last Updated meperidine HCl Adverse Reaction Mild n&v Active 08/26/16 hydrocodone bit Adverse Reaction Mild N&v Active 08/26/16 Morphine Adverse Reaction Mild n &v Active 08/26/16 Clindamycin Allergy Unknown Active 08/26/16 Immunizations Immunization Event Date Type Not Given Reason Dose Number Lot Number Casing Trimmer VIS Given Pneumococcal conjugate PCV 13 08/26/16 Administered 1 [id number] Pfizer Query Response on File Recorded Date/Time Hx Influenza Vaccination Y fall 201508/26/16 9:17am Hx Pneumococcal Vaccination Y 09/201108/26/16 9:17am Hx Influenza Vaccination Y fall 201508/26/16 9:17am Influenza Vaccine Hx 2015 08/26/16 1:09pm Vital Signs Acute Vital Signs Vital Response Date/Time Temperature (Fahrenheit) 97.0 deg F (96.8 - 99.1) 08/27/2016 12:28pm Temperature (Calculated Celsius) 36.34638 degrees C (36.0 - 37.3) 08/27/2016 12:28pm Temperature Source Oral 08/27/2016 12:28pm Pulse Rate (adult) 59 bpm (60 - 100) 08/27/2016 12:28pm Respiratory Rate 16 breaths/min (10 - 20) 08/27/2016 12:28pm O2 Sat by Pulse Oximetry 99 % (90 - 100) 08/27/2016 12:28pm Oxygen Delivery Method Room Air 08/27/2016 12:28pm Oxygen Delivery Method Room Air 08/26/2016 4:50pm Oxygen Flow Rate 4.00 L/min 08/26/2016 12:30pm Blood Pressure 143/78 mm Hg 08/27/2016 12:28pm Blood Pressure Source Automatic Cuff 08/27/2016 12:28pm Height (Feet) 5 feet 08/27/2016 8:40am Height (Inches) 11.00 inches 08/27/2016 8:40am Weight (Kilograms) 121.900 kg 08/27/2016 7:48am Body Mass Index (BMI) 36.5 08/26/2016 9:06am Results Laboratory Results Test Name Result Units Flags Reference Collection Date/Time Result Date/ Time Comments White Blood Count 15.6 T/MM3 D H 4.5-11.0 08/27/2016 5:00am 08/27/2016 6: 08am Red Blood Count 4.85 M/MM3 4.50-5.90 08/27/2016 5:00am 08/27/2016 6: 08am Hemoglobin 14.5 GM/DL D 13.5-17.5 08/27/2016 5:00am 08/27/2016 6:09am Hematocrit 43.7 % D 41-53 08/27/2016 5:00am 08/27/2016 6:09am Mean Corpuscular Volume 90.1 UM3 80-100 08/27/2016 5:00am 08/27/2016 6: 08am Mean Corpuscular Hemoglobin 29.9 UUG 26-34 08/27/2016 5:00am 2016 6:08am Mean Corpuscular Hemoglobin Concent 33.2 GM/DL 31-37 08/27/2016 5:00am 08/27/2016 6:08am RDW Standard Deviation 46.0 FL 36.9-50.2 08/27/2016 5:00am 08/27/2016 6 :08am Platelet Count 164 T/MM3 130-400 08/27/2016 5:00am 08/27/2016 6:08am Mean Platelet Volume 10.2 UM3 9.4-12.4 08/27/2016 5:00am 08/27/2016 6: 08am Neutrophils (%) (Auto) 58.7 % 33-66 08/26/2016 9:16am 08/26/2016 9: 42am Lymphocytes (%) (Auto) 26.8 % 23-45 08/26/2016 9:16am 08/26/2016 9: 42am Monocytes (%) (Auto) 8.3 % 0-9.0 08/26/2016 9:16am 08/26/2016 9:42am Eosinophils (%) (Auto) 4.1 % H 0-4 08/26/2016 9:16am 08/26/2016 9:42am Basophils (%) (Auto) 1.5 % 0-2 08/26/2016 9:16am 08/26/2016 9:42am Immature Granulocyte % (Auto) 0.6 % H 0.0-0.5 08/26/2016 9:16am 2016 9:42am Absolute Neutrophils (auto) 3.9 T/MM3 1.8-7.7 08/26/2016 9:16am 2016 9:42am Absolute Lymphocytes (auto) 1.8 T/MM3 1-4.8 08/26/2016 9:16am 2016 9:42am Absolute Monocytes (auto) 0.6 T/MM3 0-0.8 08/26/2016 9:16am 08/26/2016 9:42am Absolute Eosinophils (auto) 0.3 T/MM3 0-0.5 08/26/2016 9:16am 2016 9:42am Absolute Basophils (auto) 0.1 T/MM3 0-0.2 08/26/2016 9:16am 08/26/2016 9:42am Absolute Immature Granulocyte (auto 0.04 T/MM3 H 0.00-0.03 08/26/2016 9: 16am 08/26/2016 9:42am Icterus Index < 2 0-7 08/27/2016 5:00am 08/27/2016 5:35am Chemistry Specimen Hemolysis 19 0-25 08/27/2016 5:00am 08/27/2016 5: 35am 0-25: Specimen Exhibited No Hemolysis. Turbidity < 20 0-20 08/27/2016 5:00am 08/27/2016 5:35am Sodium Level 142 MEQ/L 134-144 08/27/2016 5:00am 08/27/2016 5:35am Potassium Level 4.5 MEQ/L D 3.6-5 08/27/2016 5:00am 08/27/2016 5:46am Chloride Level 105 MEQ/L 98-107 08/27/2016 5:00am 08/27/2016 5:35am Carbon Dioxide Level 25 MEQ/L 22-30 08/27/2016 5:00am 08/27/2016 5: 35am Anion Gap 12 MEQ/L 5-15 08/27/2016 5:00am 08/27/2016 5:35am Blood Urea Nitrogen 29.0 MG/DL H 9-20 08/27/2016 5:00am 08/27/2016 5: 35am Creatinine 1.3 MG/DL 0.8-1.5 08/27/2016 5:00am 08/27/2016 5:35am BUN/Creatinine Ratio 22 RATIO 6-26 08/27/2016 5:00am 08/27/2016 5:35am Glomerular Filtration Rate Calc 55 08/27/2016 5:00am 08/27/2016 5: 35am Glucose Level 116 MG/DL H 75-110 08/27/2016 5:00am 08/27/2016 5:35am Calculated Osmolality 280 MOSM/KG 261-280 08/27/2016 5:00am 08/27/2016 5:35am Calcium Level 8.2 MG/DL D L 8.4-10.2 08/27/2016 5:00am 08/27/2016 5:46am Total Bilirubin 1.00 MG/DL 0.20-1.30 08/26/2016 9:16am 08/26/2016 9: 55am Alkaline Phosphatase 76 U/L 38-126 08/26/2016 9:1608/26/2016 9:55am Total Protein 7.2 G/DL 6.3-8.2 08/26/2016 9:16am 08/26/2016 9:55am Albumin 4.3 G/DL 3.5-5.0 08/26/2016 9:1608/26/2016 9:55am Globulin 2.9 G/DL 2.4-3.6 08/26/2016 9:1608/26/2016 9:55am Albumin/Globulin Ratio 1.5 RATIO 1.1-2.2 08/26/2016 9:1608/26/2016 9 :55am Aspartate Amino Transf (AST/SGOT) 27 U/L 17-59 08/26/2016 9:162016 9:55am Alanine Aminotransferase (ALT/SGPT) 33 U/L 21-72 08/26/2016 9:1612/2016 9:55am Name: BEN FERGUSON Unit #: [id number] : 1950 Sex: M Admit Date: 08/26/16 Loc / Svc: SRG Discharge Date: DIAGNOSTIC IMAGING REPORT Report #: [id number] [facility] JEANIE Mas Indication: ITS.REASON: POSTOP left knee replacement PROCEDURE: KNEE LEFT 2 VIEW: Encounter: Initial Comparison: None Findings: Postoperative changes of left total knee replacement are seen. There is expected postoperative subcutaneous gas. No evidence of hardware failure or acute fracture. No retained radiopaque surgical instruments or sponges. Overlying material causing artifact. Impression: New left total knee prosthesis without evidence of immediate complication. . Procedures Procedure Status Date Provider(s) Chest x-ray 2vw frontal&latl Completed 08/05/16 Total knee arthroplasty Completed 08/26/16 ALEXANDRA EVANS MD Encounters Encounter Location Arrival/Admit Date Discharge/Depart Date Attending Provider Discharged Inpatient [facility] 08/26/16 8:43am 08/27/16 4:20pm ALEXANDRA EVANS MD [facility] 08/05/16 11:00am ISIDRO SHEIKH MD
--- OUTSIDE RECORDS SUMMARY | 2016-09-11 12:11 | XMS REPORT | Continuity of Care Document ---
Author Author [facility] Organization [facility] Address Unknown Phone Unavailable Allergies Active Description Code Type Severity Reaction Onset Reported/Identified Relationship to Patient Clinical Status Yes DEMEROL [id number] Drug Allergy N/A N/A Yes LORTAB [id number] Drug Allergy N/A N/A Yes acetaminophen acetaminophen Drug Allergy Unknown N/A 05/09/2009 Yes hydrocodone hydrocodone Drug Allergy Unknown N/A 05/09/2009 Yes hydrocodone bit hydrocodone bit Drug Allergy Unknown N/A 05/09/2009 Yes meperidine meperidine Drug Allergy Unknown N/A 05/09/2009 Yes morphine morphine Drug Allergy Unknown N/A 05/09/2009 Yes Not Converted 119. See Text. Not Converted 119. See Text. Drug Allergy Unknown N/A 2008 Yes Not Converted 29. See Text. Not Converted 29. See Text. Drug Allergy Unknown N/A 2008 Yes Not Converted 99. See Text. Not Converted 99. See Text. Drug Allergy Unknown N/A 2008 Yes Demerol Drug Allergy N/A NAUSEA/VOMITING 10/14/2010 Yes Lortab Drug Allergy N/A NAUSEA/VOMITING 10/14/2010 Yes Morphine Drug Allergy N/A NAUSEA/VOMITING 10/14/2010 Yes Codeine Drug Allergy N/A nausea/vomitting 09/24/2011 Yes No Known Food Allergies Food Allergy N/A N/A 02/01/2013 Yes MORPHINE MORPHINE Drug Allergy Moderate VOMITING 09/11/2015 Yes acetaminophen acetaminophen Drug Allergy Mild NAUSEA 09/11/2015 Yes hydrocodone hydrocodone Drug Allergy Mild NAUSEA 09/11/2015 Yes morphine morphine Drug Allergy Mild NAUSEA, VOMITING 09/11/2015 Yes LORTAB LORTAB Drug Allergy Unknown NAUSEA 09/11/2015 Yes meperidine meperidine Drug Allergy Unknown NAUSEA 09/11/2015 Yes morphine morphine Drug Allergy Unknown NAUSEA 09/11/2015 Yes Not Converted 119. See Text. Not Converted 119. See Text. Drug Allergy Unknown NA 2015 Yes Not Converted 119. See Text. Not Converted 119. See Text. Drug Allergy Unknown NAUSEA 2015 Yes Not Converted 29. See Text. Not Converted 29. See Text. Drug Allergy Unknown NAUSEA 2015 Yes Not Converted 99. See Text. Not Converted 99. See Text. Drug Allergy Unknown NAUSEA 2015 Medications Problems Date Dx Coded Attending Type Code Diagnosis Diagnosed By 12/22/2012 Carleen Curtis MD) Final 268.9 VITAMIN D DEFICIENCY NOS 12/22/2012 Carleen Curtis MD) Final 272.4 HYPERLIPIDEMIA NEC NOS 12/22/2012 Carleen Curtis MD) Final 403.90 HTN CKD NOS I-IV/NOS 12/22/2012 Carleen Curtis MD) Final 427.31 ATRIAL FIBRILLATION 12/22/2012 Carleen Curtis MD) Final 427.89 OTH CARDIAC DYSRHYTHMIAS 12/22/2012 Carleen Curtis MD) Admitting 582.1 CHR MEMBRANOUS NEPHRITIS 12/22/2012 Carleen Curtis MD) Final 585.9 CHRONIC KIDNEY DIS NOS 12/22/2012 Carleen Curtis MD) Final 729.5 PAIN IN LIMB 12/22/2012 Carleen Curtis MD) Final 729.81 LIMB SWELLING 12/22/2012 Carleen Curtis MD) Final 791.0 PROTEINURIA 12/22/2012 Carleen Curtis MD) Admitting 582.1 CHR MEMBRANOUS NEPHRITIS 02/01/2013 Orion Fierro MD Final 110.1 NAIL DERMATOPHYTOSIS 02/01/2013 Orion Fierro MD Final 110.4 FOOT DERMATOPHYTOSIS 02/01/2013 Orion Fierro MD Final 276.69 FLUID OVERLOAD NEC 02/01/2013 Orion Fierro MD Final 285.29 ANEMIA CHR DISEASE NEC 02/01/2013 Orion Fierro MD Final 287.5 THROMBOCYTOPENIA NOS 02/01/2013 Orion Fierro MD Final 403.90 HTN CKD NOS I-IV/NOS 02/01/2013 Orion Fierro MD Final 416.8 CHR PULMON HEART DIS NEC 02/01/2013 Orion Fierro MD Final 427.31 ATRIAL FIBRILLATION 02/01/2013 Orion Fierro MD Final 582.1 CHR MEMBRANOUS NEPHRITIS 02/01/2013 Orion Fierro MD Final 584.9 ACUTE KIDNEY FAILURE NOS 02/01/2013 Orion Fierro MD Final 585.9 CHRONIC KIDNEY DIS NOS 02/01/2013 Orion Fierro MD Final 682.6 LEG CELLULITIS 08/02/2013 Admitting 510.9 EMPYEMA W/O FISTULA 08/02/2013 Admitting 510.9 EMPYEMA W/O FISTULA 08/29/2013 Admitting 510.9 EMPYEMA W/O FISTULA 08/29/2013 Admitting 510.9 EMPYEMA W/O FISTULA Procedures Results Test Result Range HEMOGLOBIN - 09/11/15 10:16 MEAN CELL VOLUME 87.1 fl 80.0-100.0 HEMOGLOBIN 16.7 gm/dL 14.0-18.0 METABOLIC PANEL, BASIC - 09/11/15 10:16 POTASSIUM 4.3 mmol/L 3.5-5.3 EST GFR (MDRD) 47 mL/min > 59 ANION GAP 6 mmol/L 5-15 EST CrCl (CG) > 60 mL/min > 59 GLUCOSE 90 mg/dL 70-99 CALCIUM 8.9 mg/dL 8.5-10.1 BLOOD UREA NITROGEN 23 mg/dL 7-20 CREATININE 1.5 mg/dL 0.7-1.3 SODIUM 140 mmol/L 135-148 CHLORIDE 107 mmol/L 98-110 CARBON DIOXIDE 27 mmol/L 21-32 Encounters ACCT No. Visit Date/Time Discharge Status Pt. Type Provider Facility Loc./Unit Complaint [id number] 02/01/2013 18:24:00 2012 20:55:00 DIS Inpatient Orion Fierro MD [facility] [address] [facility] [id number] 12/22/2012 06:50:00 2012 12:00:00 DIS Outpatient Carleen Curtis MDMichael) [facility] on [address] [facility] [id number] 08/29/2013 13:30:00 Document Registration [id number] 08/02/2013 13:00:00 Document Registration
--- OUTSIDE RECORDS SUMMARY | 2016-09-11 12:11 | XMS REPORT | Continuity of Care Document ---
Author Author Chace [facility] L[facility] Organization [facility] L[facility] Address Unknown Phone Unavailable Support Name Relationship Address Phone ISIDRO SHEIKH MD Caregiver [address] [facility] [address] [place] [phone] JIMI NATARAJAN MD Caregiver [address] [place] [phone] MASOUD FERGUSON Next Of Kin [address] [place] [id number] Insurance Providers Payer Name Policy Number Subscriber Name Relationship [employer] [id number] Ben Ferguson 16 Self Advance Directives Directive Response Recorded Date/Time Advanced Directives Type None 01/10/14 9:15pm Problems Medical Problems Problem Onset Date Status Orthostatic hypotension Unknown Active Orthostatic hypotension Unknown Active Orthostatic hypotension Unknown Active Hypovolemia Unknown Active Orthostatic hypotension Unknown Active Medications Medication Dose Route Sig Days/Qty Instructions Order Date Discontinued Date Status Flecainide Acetate 100 Mg PO TWICE A DAY 06/03/10 Active Olmesartan/Hydrochlorothiazide 1 Tab PO DAILY 06/03/10 10/07/10 Discontinued Saw [place] Fruit 450 Mg PO TWICE A DAY 06/03/10 Active Amlodipine Besylate 5 Mg PO d 06/03/10 09/21/11 Discontinued Meloxicam 7.5 Mg PO DAILY 06/03/10 10/07/10 Discontinued Aspirin 320 Mg PO DAILY 06/03/10 01/28/13 Discontinued Calcium Polycarbophil 625 Mg PO DAILY 06/03/10 01/28/13 Discontinued Telmisartan 80 Mg PO DAILY 10/07/10 07/27/11 Discontinued Furosemide 10 Mg PO DAILY 10/07/10 07/27/11 Discontinued Losartan Potassium 100 Mg PO DAILY 07/27/11 08/01/13 Discontinued Torsemide 40 Mg PO DAILY 07/27/11 Active Allopurinol 300 Mg PO DAILY 07/27/11 Active Warfarin Sodium 7.5 Mg PO DAILY 09/21/11 01/28/13 Discontinued Warfarin Sodium 5 Mg PO DAILY 09/21/11 01/28/13 Discontinued [Eliquis 5mg BID] 01/28/13 Active [Eliquis] 5 Mg PO TWICE A DAY 01/28/13 01/28/13 Discontinued [Cytoxan] DAILY 01/28/13 08/01/13 Discontinued Metolazone 2.5 Mg PO NEEDED 01/28/13 08/01/13 Discontinued Spironolactone 50 Mg PO DAILY 08/01/13 Active Amlodipine Besylate 5 Mg PO TWICE A DAY 08/01/13 Active Atorvastatin Calcium 10 Mg PO DAILY 08/01/13 Active Torsemide 20 Mg PO DAILY 15 Qty 01/11/14 Active Spironolactone 25 Mg PO DAILY 15 Qty 01/11/14 Active Social History Social History Problem Response Recorded Date/Time Smoking Status Unknown if ever smoked 01/10/2014 9:15pm Hx Substance Use No 01/10/2014 9:15pm Hx Alcohol Use Y RARE USE 01/10/2014 9:15pm Has the pt used tobacco in the last 12 months No 08/01/2013 1:33pm Query Response Start Date Stop Date Smoking Status Former smoker Hospital Discharge Instructions No hospital discharge instructions. Plan of Care No plan of care. Functional Status Query Response Date Recorded Physical Hygiene Self January 10, 2014 9:15pm Disabilities Visual January 10, 2014 9:15pm Devices Used Glasses January 10, 2014 9:15pm Dressing Self January 10, 2014 9:15pm Ambulation Self January 10, 2014 9:15pm Diet Self January 10, 2014 9:15pm Mental Status Alert Oriented January 11, 2014 5:31am Disabilities Visual January 10, 2014 9:15pm Devices Used Glasses January 10, 2014 9:15pm Physical Hygiene Self January 10, 2014 9:15pm Dressing Self January 10, 2014 9:15pm Ambulation Self January 10, 2014 9:15pm Diet Self January 10, 2014 9:15pm Allergies, Adverse Reactions, Alerts Allergen Type Severity Reaction Status Last Updated meperidine HCl Adverse Reaction Mild n&v Active 01/27/13 hydrocodone bit Adverse Reaction Mild N&v Active 01/27/13 Morphine Adverse Reaction Mild n &v Active 01/27/13 Clindamycin Allergy Unknown Active 08/01/13 Immunizations Name Given Type Hx Influenza Vaccination Y FALL 2012 Historical Hx Pneumococcal Vaccination Y 09/2011 Historical Hx Influenza Vaccination Y FALL 2013 Historical Vital Signs Acute Vital Signs Vital Response Date/Time Temperature (Fahrenheit) 97.4 deg F (96.8 - 99.1) Temperature (Calculated Celsius) 36.27012 degrees C (36.0 - 37.3) Pulse Rate (adult) 78 bpm (60 - 100) Respiratory Rate 18 breaths/min (10 - 20) O2 Sat by Pulse Oximetry 99 % (90 - 100) Blood Pressure 125/79 mm Hg Height 5 ft 11 in Weight 274 lb Body Mass Index 38.0 kg/m^2 Results Test Source Date Result Interp. Ref. Range Comments Acid Fast Bacilli Culture (LAB) July 29, 2011 2:50pm Ref lab rpt scanned - --- 09/15/11 1037 ---CUAFB previously reported as: SENT OUT Activated Partial Thromboplast Time January 10, 2014 9:43pm 32.4 SEC N 24- 36 Alanine Aminotransferase (ALT/SGPT) January 10, 2014 9:43pm 39 U/L N 21-72 Albumin January 10, 2014 9:43pm 3.5 G/DL N 3.5-5.0 Albumin/Globulin Ratio January 10, 2014 9:43pm 1.4 RATIO N 1.1-2.2 Alkaline Phosphatase January 10, 2014 9:43pm 70 U/L N 38-126 Amylase Level July 27, 2011 11:00pm 55 U/L N 30-110 Anion Gap January 10, 2014 9:43pm 13 MEQ/L N 5-15 Aspartate Amino Transf (AST/SGOT) January 10, 2014 9:43pm 25 U/L N 17-59 BUN/Creatinine Ratio January 10, 2014 9:43pm 21 RATIO N 6-26 Band Neutrophils # August 30, 2013 7:53am 0.2 T/MM3 - Band Neutrophils % August 30, 2013 7:53am 2.0 % N 0-6 Basophils # (Auto) January 10, 2014 9:43pm 0.1 T/MM3 N 0-0.2 Basophils # (Manual) February 28, 2013 9:50am 0.1 T/MM3 N 0-0.2 Basophils % (Manual) February 28, 2013 9:50am 1.0 % N 0-2 Basophils (%) (Auto) January 10, 2014 9:43pm 0.8 % N 0-2 Blood Urea Nitrogen January 10, 2014 9:43pm 57.0 MG/DL PH 9-20 Body Fluid Amylase July 29, 2011 2:50pm Ref lab rpt scanned - -- - 07/30/1151 ---BFAMY previously reported as: SENT OUT Body Fluid Cholesterol July 29, 2011 2:50pm Ref lab rpt scanned - --- 07/30/11851 ---BFCHOL previously reported as: SENT OUT Body Fluid Color July 29, 2011 2:50pm Yeimi - Body Fluid Glucose July 29, 2011 2:50pm Ref lab rpt scanned - -- - 07/30/11851 ---BFGLU previously reported as: SENT OUT Body Fluid Lactate Dehydrogenase July 29, 2011 2:50pm Ref lab rpt scanned - --- 07/30/11851 ---BFLDH previously reported as: SEND OUT Body Fluid Lymphocytes July 29, 2011 2:50pm 14 % - Body Fluid Neutrophils July 29, 2011 2:50pm 86 % - Body Fluid RBC July 29, 2011 2:50pm 26130 /MM3 - Body Fluid Specific Wirtz July 29, 2011 2:50pm 1.022 - Body Fluid Total Nucleated Cells July 29, 2011 2:50pm 7248 /MM3 - Body Fluid Total Protein July 29, 2011 2:50pm Ref lab rpt scanned - --- 07/30/11851 ---BFPROT previously reported as: SEND OUT Body Fluid Triglycerides July 29, 2011 2:50pm Ref lab rpt scanned - --- 07/30/11851 ---BFTRIG previously reported as: SEND OUT Body Fluid Turbidity July 29, 2011 2:50pm Cloudy - Body Fluid Type July 29, 2011 2:50pm Thoracentesis fluid - Body Fluid pH July 29, 2011 2:50pm 8.00 - C-Reactive Protein February 14, 2013 3:45pm 6.3 MG/L N 0-9 Calcium Level January 10, 2014 9:43pm 9.1 MG/DL N 8.4-10.2 Calculated Osmolality January 10, 2014 9:43pm 285 MOSM/KG H 261-280 Carbon Dioxide Level January 10, 2014 9:43pm 28 MEQ/L N 22-30 Chloride Level January 10, 2014 9:43pm 97 MEQ/L L 98-107 Conjugated Bilirubin September 21, 2011 1:35pm 0.00 MG/DL N 0.00-0.30 Creatinine January 10, 2014 9:43pm 2.7 MG/DL H 0.8-1.5 Cyclosporine Level November 01, 2013 7:58am 117 ng/ml - Cyclosporine performed at [facility] [place], [address] [place], [place] [id number] Director Basia Laura MD D-Dimer January 10, 2014 9:43pm 66 NG/ML N 0-230 <224 NG/ML=PRESUMPTIVE NEGATIVE FOR PE OR DVT>224 NG/ML=ADDITIONAL EVALUATION FOR PE OR DVT RECOMMENDED Eosinophils # (Auto) January 10, 2014 9:43pm 0.1 T/MM3 N 0-0.5 Eosinophils # (Manual) August 16, 2013 8:09am 0.1 T/MM3 N 0-0.5 Eosinophils % (Manual) August 16, 2013 8:09am 2.0 % N 0-4 Eosinophils (%) (Auto) January 10, 2014 9:43pm 0.8 % N 0-4 Erythrocyte Sedimentation Rate February 14, 2013 3:45pm > 100 MM/HR H 0- 15 Ferritin February 14, 2013 10:10am 336 NG/ML N 18-464 Globulin January 10, 2014 9:43pm 2.5 G/DL N 2.4-3.6 Glucose Level January 10, 2014 9:43pm 146 MG/DL H 75-110 Hematocrit January 10, 2014 9:43pm 38.7 % L 41-53 Hemoglobin January 10, 2014 9:43pm 13.2 GM/DL L 13.5-17.5 Histone Antibodies July 30, 2011 4:00am Ref lab rpt scanned - -- - 08/01/11 0843 ---ANTIHIS previously reported as: SEND OUT Hypersegmented Neutrophils July 27, 2013 10:38am 1+ - Influenza Type A Antigen July 29, 2011 7:18pm Negative - Negative for Flu A protein antigen. Assay sensitivity isbetween 65-83%. A negative result does not exclude influenza virus infection. "Influenza FA" may be ordered if clinical presentation warrants confirmatory testing. Influenza Type B Antigen July 29, 2011 7:18pm Negative - Negative for Flu B protein antigen. Assay sensitivity isbetween 65-83%. A negative result does not exclude influenza virus infection. "Influenza FA" may be ordered if clinical presentation warrants confirmatory testing. Iron Level February 14, 2013 10:10am 40 UG/DL L 49-181 Lactate Dehydrogenase July 30, 2011 4:20am 337 U/L N 313-618 PAGE RESULTS JUVE (STAT) Large Platelets July 27, 2013 10:38am Few - Lipase July 27, 2011 11:00pm 79 U/L N 23-300 Lymphocytes # (Auto) January 10, 2014 9:43pm 1.2 T/MM3 N 1-4.8 Lymphocytes # (Manual) August 30, 2013 7:53am 1.3 T/MM3 N 1-4.8 Lymphocytes % (Manual) August 30, 2013 7:53am 16.0 % L 23-45 Lymphocytes (%) (Auto) January 10, 2014 9:43pm 13.6 % L 23-45 Magnesium Level October 04, 2013 8:14am 1.9 MG/DL N 1.6-2.3 Mean Corpuscular Hemoglobin January 10, 2014 9:43pm 31.7 UUG N 26-34 Mean Corpuscular Hemoglobin Concent January 10, 2014 9:43pm 34.1 GM/DL N 31 -37 Mean Corpuscular Volume January 10, 2014 9:43pm 92.8 UM3 N 80-100 Mean Platelet Volume January 10, 2014 9:43pm 9.5 UM3 N 9.4-12.4 Metamyelocytes # August 30, 2013 7:53am 0.1 T/MM3 - Metamyelocytes % August 30, 2013 7:53am 1.0 % H 0-0 Miscellaneous Cytology July 29, 2011 2:50pm Send out - COMMENT THORACENTISIS FLUIDS Monocytes # (Auto) January 10, 2014 9:43pm 0.9 T/MM3 H 0-0.8 Monocytes # (Manual) August 30, 2013 7:53am 0.7 T/MM3 N 0-0.8 Monocytes % (Manual) August 30, 2013 7:53am 8.0 % N 0-9.0 Monocytes (%) (Auto) January 10, 2014 9:43pm 10.9 % H 0-9.0 Neutrophils # (Auto) January 10, 2014 9:43pm 6.1 T/MM3 N 1.8-7.7 Neutrophils # (Manual) August 30, 2013 7:53am 6.1 T/MM3 N 1.8-7.7 Neutrophils % (Manual) August 30, 2013 7:53am 73.0 % H 33-66 Neutrophils (%) (Auto) January 10, 2014 9:43pm 71.8 % H 33-66 Parathyroid Hormone (Intact) October 18, 2013 7:50am 66.7 PG/ML H 7.5- 53.5 Percent Iron Saturation February 14, 2013 10:10am 21 % N 13-59 Phosphorus Level November 01, 2013 7:58am 4.0 MG/DL N 2.5-4.5 Platelet Count January 10, 2014 9:43pm 167 T/MM3 N 130-400 Potassium Level January 10, 2014 9:43pm 4.2 MEQ/L N 3.6-5 Prothromb Time International Ratio January 10, 2014 9:43pm 1.06 N 0.81- 1.09 THERAPUTIC RANGE=2.00-3.00 FOR ANTI-THROMBOSIS THERAPUTIC RANGE=2.50- 3.50 FOR IMPLANTED VALVE RDW Standard Deviation January 10, 2014 9:43pm 60.8 FL H 36.9-50.2 Red Blood Count January 10, 2014 9:43pm 4.17 M/MM3 L 4.50-5.90 Sodium Level January 10, 2014 9:43pm 138 MEQ/L N 134-144 Total Bilirubin January 10, 2014 9:43pm 1.10 MG/DL N 0.20-1.30 Total Creatine Kinase August 01, 2013 11:57am 74 U/L N 55-170 CALL RESULTS [phone] Total Iron Binding Capacity February 14, 2013 10:10am 192 UG/DL L 261-497 Total Protein January 10, 2014 9:43pm 6.0 G/DL L 6.3-8.2 Troponin I January 10, 2014 9:43pm 0.017 ng/ml N 0-0.12 Unconjugated Bilirubin September 21, 2011 1:35pm 0.20 MG/DL N 0.00-1.10 Uric Acid October 18, 2013 7:50am 6.4 MG/DL N 3.5-8.5 Urine Bacteria January 10, 2014 11:20pm None seen - Has specimen been collected/obtained? Y Urine Bilirubin January 10, 2014 11:20pm Negative - Has specimen been collected/obtained? Y Urine Blood January 10, 2014 11:20pm Trace-lysed H - Has specimen been collected/obtained? Y Urine Collection Type January 10, 2014 11:20pm Cleancatch-midstream - Has specimen been collected/obtained? Y Urine Color January 10, 2014 11:20pm Yellow - Has specimen been collected/obtained? Y Urine Culture Indicated August 01, 2013 11:57am Cult not indicated - CALL RESULTS [phone] Urine Glucose (UA) January 10, 2014 11:20pm Negative - Has specimen been collected/obtained? Y Urine Hyaline Casts January 10, 2014 11:20pm 3-5 /LPF - Has specimen been collected/obtained? Y Urine Ketones January 10, 2014 11:20pm Trace H - Has specimen been collected/obtained? Y Urine Leukocyte Esterase January 10, 2014 11:20pm Negative - Has specimen been collected/obtained? Y Urine Nitrite January 10, 2014 11:20pm Negative - Has specimen been collected/obtained? Y Urine Protein January 10, 2014 11:20pm 2+ H - Has specimen been collected/ obtained? Y Urine RBC January 10, 2014 11:20pm None seen /HPF - Has specimen been collected/obtained? Y Urine Random Creatinine November 01, 2013 6:40am 38.8 MG/DL - Urine Random Total Protein November 01, 2013 6:40am 208.0 MG/DL H 0.0-11.0 Urine Specific Wirtz January 10, 2014 11:20pm >=1.030 H - Has specimen been collected/obtained? Y Urine Squamous Epithelial Cells August 01, 2013 11:57am 0-5 - CALL RESULTS [phone] Urine Turbidity January 10, 2014 11:20pm Clear - Has specimen been collected/obtained? Y Urine Urobilinogen January 10, 2014 11:20pm 0.2 EU/DL - Has specimen been collected/obtained? Y Urine WBC January 10, 2014 11:20pm 0-1 /HPF - Has specimen been collected/obtained? Y Urine pH January 10, 2014 11:20pm 6.0 - Has specimen been collected/ obtained? Y Vancomycin Level Trough February 14, 2013 3:45pm 9.69 UG/ML L 15-20 White Blood Count January 10, 2014 9:43pm 8.5 T/MM3 N 4.5-11.0 Chemistry Specimen Hemolysis January 10, 2014 9:43pm 36 H 0-25 0-25: No Hemolysis.26-70: Slight Hemolysis - can falsely elevate K and Urine Protein. 71-285: Moderate Hemolysis - can falsely elevate K, Troponin I, CA 19-9, PTH, CSF GLucose, and Urine Protein, and can falsely decrease Phenytoin. 286-999: Gross Hemolysis - can falsely elevate K, Troponin I, CA 19-9, PTH, CSF Glucose, and Urine Protine, and can falsely decrease Phenytoin. Recommend specimen recollection. Lab Scanned Report November 01, 2013 8:57am LAB TEST FORM REQUEST [id number] - Urine Protein/Creatinine Ratio 24hr November 01, 2013 6:40am 5.36 RATIO - Anti-Nuclear Antibody (LAB) July 30, 2011 4:00am Ref lab rpt scanned - --- 08/01/11 0843 ---HANNY previously reported as: SENT OUT Platelet Evaluation (Diff) July 27, 2013 10:38am Few - Turbidity January 10, 2014 9:43pm < 20 0-20 Reactive Lymphocytes % August 09, 2013 8:30am 1.0 % H 0-0 Glomerular Filtration Rate Calc January 10, 2014 9:43pm 24 - Reactive Lymphocytes # August 09, 2013 8:30am 0.1 T/MM3 H 0-0 Body Fluid Rheumatoid Factor July 30, 2011 4:00am Test not performed-- - 08/06/11 0852 --- BFRF previously reported as: SEND OUT UNABLE TO PERFORM TEST, [facility] NO LONGER PERFORMS RF ON THOROCENTESIS FLUID NEITHER DOES THERE REFERENCE LAB (FOCUS). 08/06/11 TLW - Immature Granulocyte # (Auto) January 10, 2014 9:43pm 0.18 T/MM3 H 0.00- 0.03 Immature Granulocyte % (Auto) January 10, 2014 9:43pm 2.1 % H 0.0-0.5 25-Hydroxy Vitamin D Total October 18, 2013 7:50am 26 ng/mL L - The desirable level of 25-Hydroxy Vitamin D Total(D2 + D3) is 30-74 ng/mL.A level consistently >200 is potentially toxic. Vitamin D, 25-Hydroxy performed at [facility], [facility] [place] [address] Sand Polisher Basia Laura MD 25-Hydroxy Vitamin D2 October 18, 2013 7:50am <7 ng/mL - 25-Hydroxy Vitamin D3 October 18, 2013 7:50am 26 ng/mL - Icterus Index January 10, 2014 9:43pm < 2 0-7 CW-Lcx-F-Type Natriuretic Peptide January 27, 2013 10:55pm 1170 PG/ML H 0 -175 Rule in cut points: <50 years old=450; 50-75 years old=900; >75 years old=1800; When utilizing ProBNP rule-in cut points, adjustment for impaired renal function is typically not required. Blood Culture Blood July 31, 2011 9:55am NO GROWTH AFTER 5 DAYS Gram Stain Thoracentesis Fluid July 29, 2011 2:50pm Procedures No known history of procedures. Encounters Encounter Location Date/Time Departed Emergency Room [facility] 01/10/14 8:52pm Discharged Recurring [facility] 08/16/13 8:06am Recent Diagnosis
--- OUTSIDE RECORDS SUMMARY | 2016-09-11 12:11 | XMS REPORT | Continuity of Care Document ---
Author Author [facility] LIVE Organization [facility] LIVE Address Unknown Phone Unavailable Support Name Relationship Address Phone ISIDRO SHEIKH MD Caregiver [address] [facility] [place] [phone] JIMI NATARAJAN MD Caregiver [address] [place] [phone] MASOUD FERGUSON Next Of Kin [address] [place] [address] Insurance Providers Payer Name Policy Number Subscriber Name Relationship [employer] [id number] Ben Ferguson 16 Self Problems Medical Problems Problem Onset Date Status Orthostatic hypotension Unknown Active Orthostatic hypotension Unknown Active Orthostatic hypotension Unknown Active Hypovolemia Unknown Active Orthostatic hypotension Unknown Active Allergic reaction Unknown Active Allergic reaction Unknown Active Medications Medication Dose Route Sig Days/Qty Instructions Order Date Discontinued Date Status Flecainide Acetate 100 Mg PO TWICE A DAY 06/03/10 Active Olmesartan/Hydrochlorothiazide 1 Tab PO DAILY 06/03/10 10/07/10 Discontinued Saw [place] Fruit 450 Mg PO TWICE A DAY [...] 100 Mg PO DAILY 07/27/11 08/01/13 Discontinued Allopurinol 300 Mg PO DAILY 07/27/11 Active Warfarin Sodium 7.5 Mg PO DAILY 09/21/11 01/28/13 Discontinued Warfarin Sodium 5 Mg PO DAILY 09/21/11 01/28/13 Discontinued [Eliquis 5mg BID] 01/28/13 Active [Eliquis] 5 Mg PO TWICE A DAY 01/28/13 01/28/13 Discontinued [Cytoxan] DAILY 01/28/13 08/01/13 Discontinued Metolazone 2.5 Mg PO NEEDED 01/28/13 08/01/13 Discontinued Amlodipine Besylate 5 Mg PO TWICE A DAY 08/01/13 Active Atorvastatin Calcium 10 Mg PO DAILY 08/01/13 Active Torsemide 20 Mg PO DAILY 15 Qty 01/11/14 Active Spironolactone 25 Mg PO DAILY 15 Qty 01/11/14 Active Prednisone 10 Mg PO DAILY 21 Qty 6 TABS ON DAY #1 01/13/14 Active Epinephrine 0.3 Mg IM NEEDED For ALLERGIC REACTION 2 Qty SYMPTOMS Active Social History Social History Problem Response Recorded Date/Time Smoking Status Former smoker 01/13/2014 7:24pm Hx Substance Use No 01/13/2014 7:24pm Hx Alcohol Use Y RARE USE 01/13/2014 7:24pm Has the pt used tobacco in the last 12 months No 08/01/2013 1:33pm Query Response Start Date Stop Date Smoking Status Former smoker Hospital Discharge Instructions No hospital discharge instructions. Plan of Care No plan of care. Functional Status Query Response Date Recorded Physical Hygiene Self January 13, 2014 7:24pm Disabilities None January 13, 2014 7:24pm Devices Used Glasses January 13, 2014 7:24pm Dressing Self January 13, 2014 7:24pm Ambulation Self January 13, 2014 7:24pm Diet Self January 13, 2014 7:24pm Mental Status Alert Oriented January 13, 2014 7:24pm Disabilities None January 13, 2014 7:24pm Devices Used Glasses January 13, 2014 7:24pm Physical Hygiene Self January 13, 2014 7:24pm Dressing Self January 13, 2014 7:24pm Ambulation Self January 13, 2014 7:24pm Diet Self January 13, 2014 7:24pm Allergies, Adverse Reactions, Alerts Allergen Type Severity Reaction Status Last Updated meperidine HCl Adverse Reaction Mild n&v Active 01/13/14 hydrocodone bit Adverse Reaction Mild N&v Active 01/13/14 Morphine Adverse Reaction Mild n &v Active 01/13/14 Clindamycin Allergy Unknown Active 01/13/14 Immunizations Name Given Type Hx Influenza Vaccination Y FALL 2012 Historical Hx Pneumococcal Vaccination Y 09/2011 Historical Hx Influenza Vaccination Y FALL 2012 Historical Vital Signs Acute Vital Signs Vital Response Date/Time Temperature (Fahrenheit) 97.2 deg F (96.8 - 99.1) Temperature (Calculated Celsius) 36.32104 degrees C (36.0 - 37.3) Pulse Rate (adult) 86 bpm (60 - 100) Respiratory Rate 20 breaths/min (10 - 20) O2 Sat by Pulse Oximetry 96 % (90 - 100) Blood Pressure 123/74 mm Hg Height 5 ft 11 in Weight 255 lb Body Mass Index 35.0 kg/m^2 Results Test Source Date Result Interp. Ref. Range Comments Acid Fast Bacilli Culture (LAB) July 29, 2011 2:50pm Ref lab rpt scanned - --- 09/15/11 1037 ---CUAFB previously reported as: SENT OUT Activated Partial Thromboplast Time January 10, 2014 9:43pm 32.4 SEC N 24- 36 Alanine Aminotransferase (ALT/SGPT) January 13, 2014 7:24pm 36 U/L N 21-72 Albumin January 13, 2014 7:24pm 3.8 G/DL N 3.5-5.0 Albumin/Globulin Ratio January 13, 2014 7:24pm 1.7 RATIO N 1.1-2.2 Alkaline Phosphatase January 13, 2014 7:24pm 74 U/L N 38-126 Amylase Level July 27, 2011 11:00pm 55 U/L N 30-110 Anion Gap January 13, 2014 7:24pm 15 MEQ/L N 5-15 Aspartate Amino Transf (AST/SGOT) January 13, 2014 7:24pm 22 U/L N 17-59 BUN/Creatinine Ratio January 13, 2014 7:24pm 16 RATIO N 6-26 Band Neutrophils # August 30, 2013 7:53am 0.2 T/MM3 - Band Neutrophils % August 30, 2013 7:53am 2.0 % N 0-6 Basophils # (Auto) January 13, 2014 7:24pm 0.0 T/MM3 N 0-0.2 Basophils # (Manual) February 28, 2013 9:50am 0.1 T/MM3 N 0-0.2 Basophils % (Manual) February 28, 2013 9:50am 1.0 % N 0-2 Basophils (%) (Auto) January 13, 2014 7:24pm 0.4 % N 0-2 Blood Urea Nitrogen January 13, 2014 7:24pm 35.0 MG/DL H 9-20 Body Fluid Amylase July 29, 2011 [...] Body Fluid RBC July 29, 2011 2:50pm 16654 /MM3 - Body Fluid Specific [place] July 29, 2011 2:50pm 1.022 - Body [...] 6.3 MG/L N 0-9 Calcium Level January 13, 2014 7:24pm 9.3 MG/DL N 8.4-10.2 Calculated Osmolality January 13, 2014 7:24pm 280 MOSM/KG N 261-280 Carbon Dioxide Level January 13, 2014 7:24pm 25 MEQ/L N 22-30 Chloride Level January 13, 2014 7:24pm 100 MEQ/L N 98-107 Conjugated Bilirubin September 21, 2011 1:35pm 0.00 MG/DL N 0.00-0.30 Creatinine January 13, 2014 7:24pm 2.2 MG/DL DH 0.8-1.5 Cyclosporine Level November 01, 2013 7:58am 117 ng/ml - Cyclosporine performed at [facility] [place], [address] [place], [place] [address] Director Basia Laura MD D-Dimer January 10, 2014 9:43pm 66 NG/ML N 0-230 <224 NG/ML=PRESUMPTIVE NEGATIVE FOR PE OR DVT>224 NG/ML=ADDITIONAL EVALUATION FOR PE OR DVT RECOMMENDED Eosinophils # (Auto) January 13, 2014 7:24pm 0.0 T/MM3 N 0-0.5 Eosinophils # (Manual) August 16, 2013 8:09am 0.1 T/MM3 N 0-0.5 Eosinophils % (Manual) August 16, 2013 8:09am 2.0 % N 0-4 Eosinophils (%) (Auto) January 13, 2014 7:24pm 0.4 % N 0-4 Erythrocyte Sedimentation Rate February 14, 2013 3:45pm > 100 MM/HR H 0- 15 Ferritin February 14, 2013 10:10am 336 NG/ML N 18-464 Globulin January 13, 2014 7:24pm 2.3 G/DL L 2.4-3.6 Glucose Level January 13, 2014 7:24pm 158 MG/DL H 75-110 Hematocrit January 13, 2014 7:24pm 39.1 % L 41-53 Hemoglobin January 13, 2014 7:24pm 13.0 GM/DL L 13.5-17.5 Histone Antibodies July 30, [...] U/L N 23-300 Lymphocytes # (Auto) January 13, 2014 7:24pm 1.8 T/MM3 N 1-4.8 Lymphocytes # (Manual) August 30, 2013 7:53am 1.3 T/MM3 N 1-4.8 Lymphocytes % (Manual) August 30, 2013 7:53am 16.0 % L 23-45 Lymphocytes (%) (Auto) January 13, 2014 7:24pm 22.8 % L 23-45 Magnesium Level October 04, 2013 8:14am 1.9 MG/DL N 1.6-2.3 Mean Corpuscular Hemoglobin January 13, 2014 7:24pm 31.3 UUG N 26-34 Mean Corpuscular Hemoglobin Concent January 13, 2014 7:24pm 33.2 GM/DL N 31 -37 Mean Corpuscular Volume January 13, 2014 7:24pm 94.0 UM3 N 80-100 Mean Platelet Volume January 13, 2014 7:24pm 9.4 UM3 N 9.4-12.4 Metamyelocytes # August 30, 2013 7:53am 0.1 T/MM3 - Metamyelocytes % August 30, 2013 7:53am 1.0 % H 0-0 Miscellaneous Cytology July 29, 2011 2:50pm Send out - COMMENT THORACENTISIS FLUIDS Monocytes # (Auto) January 13, 2014 7:24pm 0.6 T/MM3 N 0-0.8 Monocytes # (Manual) August 30, 2013 7:53am 0.7 T/MM3 N 0-0.8 Monocytes % (Manual) August 30, 2013 7:53am 8.0 % N 0-9.0 Monocytes (%) (Auto) January 13, 2014 7:24pm 8.2 % N 0-9.0 Neutrophils # (Auto) January 13, 2014 7:24pm 5.2 T/MM3 N 1.8-7.7 Neutrophils # (Manual) August 30, 2013 7:53am 6.1 T/MM3 N 1.8-7.7 Neutrophils % (Manual) August 30, 2013 7:53am 73.0 % H 33-66 Neutrophils (%) (Auto) January 13, 2014 7:24pm 66.9 % H 33-66 Parathyroid Hormone (Intact) October 18, 2013 7:50am 66.7 PG/ML H 7.5- 53.5 Percent Iron Saturation February 14, 2013 10:10am 21 % N 13-59 Phosphorus Level November 01, 2013 7:58am 4.0 MG/DL N 2.5-4.5 Platelet Count January 13, 2014 7:24pm 179 T/MM3 N 130-400 Potassium Level January 13, 2014 7:24pm 4.4 MEQ/L N 3.6-5 Prothromb Time International Ratio January 10, 2014 9:43pm 1.06 N 0.81- 1.09 THERAPUTIC RANGE=2.00-3.00 FOR ANTI-THROMBOSIS THERAPUTIC RANGE=2.50- 3.50 FOR IMPLANTED VALVE RDW Standard Deviation January 13, 2014 7:24pm 61.9 FL H 36.9-50.2 Red Blood Count January 13, 2014 7:24pm 4.16 M/MM3 L 4.50-5.90 Sodium Level January 13, 2014 7:24pm 140 MEQ/L N 134-144 Total Bilirubin January 13, 2014 7:24pm 1.70 MG/DL H 0.20-1.30 Total Creatine Kinase August 01, 2013 11:57am 74 U/L N 55-170 CALL RESULTS [phone] Total Iron Binding Capacity February 14, 2013 10:10am 192 UG/DL L 261-497 Total Protein January 13, 2014 7:24pm 6.1 G/DL L 6.3-8.2 Troponin I January 13, 2014 7:24pm 0.026 ng/ml N 0-0.12 Unconjugated Bilirubin September 21, 2011 1:35pm 0.20 MG/DL N 0.00-1.10 Uric Acid October 18, 2013 7:50am 6.4 MG/DL N 3.5-8.5 Urine Bacteria January 13, 2014 9:55pm 1+ H - Has specimen been collected/ obtained? Y Urine Bilirubin January 13, 2014 9:55pm Negative - Has specimen been collected/obtained? Y Urine Blood January 13, 2014 9:55pm Trace-lysed H - Has specimen been collected/obtained? Y Urine Collection Type January 13, 2014 9:55pm Voided-not cc-midstr - Has specimen been collected/obtained? Y Urine Color January 13, 2014 9:55pm Yellow - Has specimen been collected /obtained? Y Urine Culture Indicated January 13, 2014 9:55pm Cult not indicated - Has specimen been collected/obtained? Y Urine Glucose (UA) January 13, 2014 9:55pm Negative - Has specimen been collected/obtained? Y Urine Hyaline Casts January 13, 2014 9:55pm 3-5 /LPF - Has specimen been collected/obtained? Y Urine Ketones January 13, 2014 9:55pm Negative - Has specimen been collected/obtained? Y Urine Leukocyte Esterase January 13, 2014 9:55pm Negative - Has specimen been collected/obtained? Y Urine Nitrite January 13, 2014 9:55pm Negative - Has specimen been collected/obtained? Y Urine Protein January 13, 2014 9:55pm 2+ H - Has specimen been collected/ obtained? Y Urine RBC January 13, 2014 9:55pm 1-3 /HPF - Has specimen been collected /obtained? Y Urine Random Creatinine November 01, 2013 6:40am 38.8 MG/DL - Urine Random Total Protein November 01, 2013 6:40am 208.0 MG/DL H 0.0-11.0 Urine Specific [place] January 13, 2014 9:55pm 1.025 - Has specimen been collected/obtained? Y Urine Squamous Epithelial Cells August 01, 2013 11:57am 0-5 - CALL RESULTS [phone] Urine Turbidity January 13, 2014 9:55pm Clear - Has specimen been collected/obtained? Y Urine Urobilinogen January 13, 2014 9:55pm 0.2 EU/DL - Has specimen been collected/obtained? Y Urine WBC January 13, 2014 9:55pm 1-3 /HPF - Has specimen been collected /obtained? Y Urine pH January 13, 2014 9:55pm 6.0 - Has specimen been collected/ obtained? Y Vancomycin Level Trough February 14, 2013 3:45pm 9.69 UG/ML L 15-20 White Blood Count January 13, 2014 7:24pm 7.8 T/MM3 N 4.5-11.0 Chemistry Specimen Hemolysis January 13, 2014 7:24pm < 15 0-25 0-25: No Hemolysis.26-70: Slight Hemolysis - [...] 01, 2013 8:57am LAB TEST FORM REQUEST [id number] - Urine Protein/Creatinine Ratio 24hr November 01, 2013 6:40am 5.36 RATIO - Anti-Nuclear Antibody (LAB) July 30, 2011 4:00am Ref lab rpt scanned - --- 08/01/11 0843 ---HANNY previously reported as: SENT OUT Platelet Evaluation (Diff) July 27, 2013 10:38am Few - Turbidity January 13, 2014 7:24pm < 20 0-20 Reactive Lymphocytes % August 09, 2013 8:30am 1.0 % H 0-0 Glomerular Filtration Rate Calc January 13, 2014 7:24pm 30 - Reactive Lymphocytes # August 09, 2013 8:30am 0.1 T/MM3 H 0-0 Body Fluid Rheumatoid Factor July 30, 2011 4:00am Test not performed-- - 08/06/11 0852 --- BFRF previously reported as: SEND OUT UNABLE TO PERFORM TEST, [place] NO LONGER PERFORMS RF ON THOROCENTESIS FLUID NEITHER DOES THERE REFERENCE LAB (FOCUS). 08/06/11 TLW - Immature Granulocyte # (Auto) January 13, 2014 7:24pm 0.10 T/MM3 H 0.00- 0.03 Immature Granulocyte % (Auto) January 13, 2014 7:24pm 1.3 % H 0.0-0.5 25-Hydroxy Vitamin D Total October 18, 2013 7:50am 26 ng/mL L - The desirable level of 25-Hydroxy Vitamin D Total(D2 + D3) is 30-74 ng/mL.A level consistently >200 is potentially toxic. Vitamin D, 25-Hydroxy performed at [facility] Reference Lab, [facility] [place] [address] Sausage Stuffer Basia Laura MD 25-Hydroxy Vitamin D2 October 18, 2013 7:50am <7 ng/mL - 25-Hydroxy Vitamin D3 October 18, 2013 7:50am 26 ng/mL - Icterus Index January 13, 2014 7:24pm < 2 0-7 MR-Pqe-Y-Type Natriuretic Peptide January 13, 2014 7:24pm 372 PG/ML H 0- 175 Rule in cut points: <50 years old=450; 50-75 years old=900; >75 years old=1800; When utilizing ProBNP rule-in cut points, adjustment for impaired renal function is typically not required. Blood Culture Blood July 31, 2011 9:55am NO GROWTH AFTER 5 DAYS Gram Stain Thoracentesis Fluid July 29, 2011 2:50pm Name: BEN FERGUSON Unit #: [id number] : [id number] Sex: M Loc / Svc: ED DOS: 01/10/14 Signed Report #: [id number] DIAGNOSTIC IMAGING REPORT TYPE OF EXAM: CHEST, PA & LATERAL Dictated By: PERLA SALINAS MD INDICATION: ITS.REASON: DIZZINESS, HYPOTENSION CHEST 2-VIEWS UPRIGHT (PA & LAT): COMPARISON: December 23, 2011 Findings: The lungs are stable in appearance without new focal airspace consolidation. There is no pleural effusion or pneumothorax. The heart size, pulmonary vascularity and mediastinal contours are unchanged. IMPRESSION: Stable appearance of the chest without acute cardiopulmonary disease. . Procedures Procedure Status Date Provider(s) HYDRATION IV INFUSION INIT completed 01/10/14 HYDRATE IV INFUSION ADD-ON completed 01/10/14 Encounters Encounter Location Date/Time Departed Emergency Room [facility] 01/13/14 7:21pm Departed Emergency Room [facility] 01/10/14 8:52pm Discharged Recurring [facility] 08/16/13 8:06am Recent Diagnosis
--- NOTE | 2016-09-11 12:19 | NUR ---
REPEAT EKG PATIENT CONVERTED TO SINUS RHYTHM REPEAT EKG OBTAINED. HEART RATE 83
[2016-09-11] MEDS ORDERED: ACET325T51 PO (12:33)
[2016-09-11] MEDS ORDERED: ASPI-914 PO (12:33)
[2016-09-11] MEDS ORDERED: POLY17PO18 PO (12:36)
--- NOTE | 2016-09-11 12:44 | NUR ---
PORT XRY AT THIS TIME
--- NOTE | 2016-09-11 12:47 | ERPDOC ---
Departure Disposition Decision Date: Sep 11, 2016 Disposition Decision Time: 14:16 (MASOUD STERN N PERIANESTHESIA NURSE) Disposition: 01 DISCHARGED HOME, SELF-CARE Impression Impression (MASOUD STERN APRN) Impression: Primary Impression: Atrial fibrillation Atrial fibrillation type: paroxysmal Qualified Codes: I48.0 - Paroxysmal atrial fibrillation Severity: Moderate (MASOUD STERN N PERIANESTHESIA NURSE) Condition: Stable Seen By: Mid-level only (MASOUD STERN PERIANESTHESIA NURSE) Referrals: ISIDRO SHEIKH MD (Family) Patient Instructions: Atrial Fibrillation (ED) Problems/Meds/Labs Reviewed?: Yes Medications reviewed and manag: Yes (WADE STERNA Steve PERIANESTHESIA NURSE) Additional Instructions: Continue your home medications as prescribed. Make sure that you are drinking plenty of fluids at home. Contact Dr Peacock's office early next week for follow up or return to ER with any further concerns. Follow up care ordered?: Yes Mental Status: Alert, Oriented (MASOUD STERN PERIANESTHESIA NURSE) HPI - Cardiac General Chief Complaint: Cardiac Complaint Stated Complaint: LOW BP, ERRATIC PULSE Time Seen by Provider: 12:27 Source: patient Exam Limitations: no limitations (MASOUD STERN APRN) Time Seen by Provider: 12:27 (LASHANDA AUSTIN DO) HPI - Cardiac General Initial Comments He was at home today and had onset of feeling lightheaded when he got up out of his chair. He took his blood pressure and it was low. He noted that his pulse was fast and he was in atrial fibrillation. He had taken his home medications today at 0900. He has a history of atrial fibrillation so he took an extra dose of his Flecainide at 0930. 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 He left a message with his nurse. Denies any chest pain but did have some shortness of breath. Upon arrival to ER he was noted to be in atrial fibrillation but after the IV start he did convert to NSR. Occurred At: home Onset/Timing: Rapid Duration: 1-3 hrs (at 0930) Severity: moderate Location: substernal Activities at Onset/Context: none Nitro Today/Relief: no nitro taken today Aspirin Today: 81 mg x 4 Associated Symptoms: other (lightheadedness), shortness of breath, DENIES: chest pain, cough, diaphoresis, fever/chills, headaches, loss of appetite, malaise, nausea/vomiting, rash, seizure, syncope, weakness Hx of Similar Symptoms: No (NOLD,MASOUD N PERIANESTHESIA NURSE) Allergies: Coded Allergies: clindamycin (Verified Allergy, Unknown, 09/11/16) hydrocodone bit (Verified Adverse Reaction, Mild, N&v, 09/11/16) meperidine HCl (Verified Adverse Reaction, Mild, n&v, 09/11/16) morphine (Verified Adverse Reaction, Mild, n &v, 09/11/16) Past History Past Medical History Metabolic: gout, hypertension Cardiac: A-fib, CHF Respiratory: pneumonia, pulmonary embolus Male: other, renal insufficiency (NOLD,MASOUD N PERIANESTHESIA NURSE) Surgical History Joint: hip (NOLD,MASOUD N PERIANESTHESIA NURSE) Family History Family PMH: FOUND: [place], hypertension (NOLD,MASOUD N PERIANESTHESIA NURSE) Vaccines Hx Influenza Vaccination: Yes (FALL 2015) Hx Pneumococcal Vaccination: Yes (09/2011) (NOLD,MASOUD N PERIANESTHESIA NURSE) Social History Does patient use chewing tobac: No Second Hand Exposure: No Substance Use Type: does not use Sexuality: female partner (NOLD,MASOUD N PERIANESTHESIA NURSE) Review of Systems Constitutional Constitutional: dizziness, DENIES: chills, fatigue, fever, weakness (NOLD, MASOUD N PERIANESTHESIA NURSE) Eyes Vision: DENIES: blurring, double vision (NOLD,MASOUD N PERIANESTHESIA NURSE) ENMT Ears: DENIES: drainage, pain Sinuses: DENIES: congestion, rhinorrhea Mouth/Throat: DENIES: painful swallowing, scratchy throat, sore throat (NOLD, MASOUD N PERIANESTHESIA NURSE) Cardiovascular Cardiac: DENIES: chest pain, dyspnea on exertion, orthopnea Rhythm/Rate: irregular beat, palpitations Vascular: DENIES: pedal edema, unilateral swelling (NOLD,MASOUD N PERIANESTHESIA NURSE) Pulmonary Respiratory: dyspnea, DENIES: cough, sputum, tachypnea (NOLD,MASOUD N PERIANESTHESIA NURSE) GI Upper Abdomen: DENIES: nausea, pain, vomiting Lower Abdomen: DENIES: constipation, diarrhea, pain (NOLD,MASOUD N PERIANESTHESIA NURSE) Integumentary Skin: DENIES: rash (NOLD,MASOUD N PERIANESTHESIA NURSE) Neurological General: DENIES: headache, numbness, tingling, weakness (MASOUD STERN APRN) Physical Exam General General Nourishment: well nourished, well developed, appears stated age, no acute distress, adult General Body Habitus: well groomed (MASOUD STERN APRN) Vitals and Pain First Documented Vital Signs Date Time Temp Pulse Resp B/P Pulse Ox O2 Delivery O2 Flow Rate FiO2 09/11/16 12:06 97.2 122 16 117/84 97 Room Air (LASHANDA AUSTIN DO) Vitals and Pain Weight: Kilograms: Height (feet): 5 Height (inches): 11.00 Triage Pain Scale: (MASOUD STERN APRN) RN VS reviewed by Provider: Yes (MASOUD STERN APRN) Normal Exams: Neck: Full range of motion, without adenopathy, JVD, bruits or thyromegaly Chest/Resp: Clear all bahena, with good airflow, and symmetry bilaterally CV: Regular rate and rhythm, without murmur or gallop, Pulses 2+ all extremities, capillary refill, <2 seconds all ext., no pedal edema noted Abdomen: Bowel sounds positive, soft, non-tender, non-distended, no hepatosplenomegaly, masses or bruits noted Lymphatic: No lymphadenopathy, or lymphedema noted Integumentary: No rashes, hives, or bruising noted Neurologic: Patient is alert, and oriented Psychiatric: Patient exhibits, appropriate attention, emotion and affect (MASOUD STERN APRN) Differential Diagnoses Considering: Acute [place], Anxiety/Panic, Angina, Atrial Fibrillation, Bradycardia , Other (hypotension) (MASOUD STERN APRN) Progress Results/Orders Orders Procedure Category Date Status Time EKG EKG 09/11/16 Taken Cbc W/Auto LAB 09/11/16 Complete Diff-Reflex Manual 12:36 Bmp - Basic Metabolic LAB 09/11/16 Complete Panel 12:36 Troponin I W LAB 09/11/16 Complete Hemolysis Index 12:36 Chest 1 View RAD 09/11/16 Resulted 12:36 Iv Lock (Ed Only) EDM 09/11/16 Transmitted 12:36 Us Venous Duplex, US 09/11/16 Resulted Lower Ext Lt EKG EKG 09/11/16 Taken (LASHANDA AUSTIN DO) Lab Results Laboratory Tests Test 09/11/16 12:23 White Blood Count 8.7T/MM3 Red Blood Count 4.79M/MM3 Hemoglobin 14.4GM/DL Hematocrit 43.9% Mean Corpuscular Volume 91.6UM3 Mean Corpuscular Hemoglobin 30.1UUG Mean Corpuscular Hemoglobin Concent 32.8GM/DL RDW Standard Deviation 47.6FL Platelet Count 275T/MM3 Mean Platelet Volume 9.5UM3 Immature Granulocyte % (Auto) 0.6% Neutrophils (%) (Auto) 67.2% Lymphocytes (%) (Auto) 22.1% Monocytes (%) (Auto) 6.4% Eosinophils (%) (Auto) 2.6% Basophils (%) (Auto) 1.1% Absolute Immature Granulocyte (auto 0.05T/MM3 Absolute Neutrophils (auto) 5.9T/MM3 Absolute Lymphocytes (auto) 1.9T/MM3 Absolute Monocytes (auto) 0.6T/MM3 Absolute Eosinophils (auto) 0.2T/MM3 Absolute Basophils (auto) 0.1T/MM3 Turbidity < 20 Sodium Level 140MEQ/L Potassium Level 3.5MEQ/L Chloride Level 101MEQ/L Carbon Dioxide Level 28MEQ/L Anion Gap 11MEQ/L Blood Urea Nitrogen 23.0MG/DL Creatinine 1.5MG/DL Glomerular Filtration Rate Calc 47 BUN/Creatinine Ratio 15RATIO Glucose Level 97MG/DL Calculated Osmolality 273MOSM/KG Calcium Level 9.2MG/DL Icterus Index < 2 Troponin I < 0.012ng/ml Chemistry Specimen Hemolysis < 15 (LASHANDA AUSTIN DO) Progress Progress CBC, BMP, and troponin today are negative. Chest xray is negative as well as US of left lower extremity. He has been in NSR since he converted right after check -in. Denies any chest pain. 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 Will go ahead and send him home today, he is ready to go home. Follow up next week with Dr Peacock or return to ER for reevaluation if symptoms return. (MASOUD STERN PERIANESTHESIA NURSE) Xray Xray : Reason for Exam: atrial fibrillation Xray: CXR Portable Interpretation: Normal (MASOUD STERN APRN) MASOUD STERN APRN Sep 11, 2016 12:46 LASHANDA AUSTIN DO Sep 11, 2016 15:15
[2016-09-11 12:48] LABS: BASOPHILS # (AUTO) 0.1 T/MM3 (0-0.2); BASOPHILS % (AUTO) 1.1 % (0-2); EOSINOPHILS # (AUTO) 0.2 T/MM3 (0-0.5); EOSINOPHILS % (AUTO) 2.6 % (0-4); HCT - HEMATOCRIT 43.9 % (41-53); HGB - HEMOGLOBIN 14.4 GM/DL (13.5-17.5); IMMATURE GRANULOCYTE # (AUTO) 0.05 T/MM3 (0.00-0.03); IMMATURE GRANULOCYTE % (AUTO) 0.6 % (0.0-0.5); LYMPHOCYTES # (AUTO) 1.9 T/MM3 (1-4.8); LYMPHOCYTES % (AUTO) 22.1 % (23-45); MEAN CORPUSCULAR HGB 30.1 UUG (26-34); MEAN CORPUSCULAR HGB CONC(MCHC 32.8 GM/DL (31-37); MEAN CORPUSCULAR VOLUME 91.6 UM3 (80-100); MEAN PLATELET VOLUME 9.5 UM3 (9.4-12.4); MONOCYTES # (AUTO) 0.6 T/MM3 (0-0.8); MONOCYTES % (AUTO) 6.4 % (0-9.0); NEUTROPHILS #(AUTO)-ABSOLUTE 5.9 T/MM3 (1.8-7.7); NEUTROPHILS % (AUTO) 67.2 % (33-66); RED BLOOD COUNT 4.79 M/MM3 (4.50-5.90); WBC - WHITE BLOOD COUNT 8.7 T/MM3 (4.5-11.0)
--- NOTE | 2016-09-11 12:51 | DI ---
Indication: ITS.REASON: chest pain PROCEDURE: CHEST 1 VIEW: Encounter: Initial Comparison: August 05, 2016 FINDINGS: Chronic scarring in the right base with tenting of the lateral hemidiaphragm. The lungs are otherwise clear. There is no new consolidation, pleural effusion or pneumothorax identified. The heart size, pulmonary vasculature and mediastinum are within normal limits. IMPRESSION: Stable chest without acute cardiopulmonary abnormality. .
[2016-09-11 12:57] LABS: ANION GAP 11 MEQ/L (5-15); BUN/CREATININE RATIO 15 RATIO (6-26); CALCIUM 9.2 MG/DL (8.4-10.2); CHLORIDE 101 MEQ/L (98-107); CO2 - CARBON DIOXIDE 28 MEQ/L (22-30); CREATININE 1.5 MG/DL (0.8-1.5); GLOMERULAR FILTRATION RATE 47; GLUCOSE 97 MG/DL (75-110); POTASSIUM 3.5 MEQ/L (3.6-5); SODIUM 140 MEQ/L (134-144)
--- NOTE | 2016-09-11 13:00 | NUR ---
STATUS PATIENT RESTING IN BED. DENIES PAIN OR SOA. MONITOR CONTINUES TO SHOW SINUS RHYTHM
--- NOTE | 2016-09-11 13:40 | NUR ---
U/S IN ROOM AT THIS TIME
--- OUTSIDE RECORDS SUMMARY | 2016-09-11 13:40 | XMS REPORT ---
Author Author [facility], [facility] Emergency Department Unknown Address Unknown Phone Unavailable Allergies, Adverse [...] the responsibility of the patient or patient order entry representative to confirm the list of medications [...]
--- OUTSIDE RECORDS SUMMARY | 2016-09-11 13:41 | XMS REPORT ---
Author Author [facility] - Organization Unknown Address Unknown Phone Unavailable [...] the responsibility of the patient or patient manufacturer's service representative to confirm the list of medications [...] am. Follow up with Dr Elizondo in [place] in 1 week. * flecainide 100 mg [...] 20:40 Site: Received : 02/01/13 20:50 Order#: [id number] Blood Culture #1 FINAL 02/07/13 10:15 No growth after 5 days of incubation. HANEY FOR RESULTS: * - NEW RESULT - RESULT WAS MODIFIED AFTER FINAL STATUS SET LAB--MICROBIOLOGY from 02/01/2013 8:45 PMBlood Culture #2 Source: Blood Collected: 02/01/13 20:45 Site: Received : 02/01/13 20:50 Order#: [id number] Blood Culture #2 FINAL 02/07/13 10:15 No [...] (-<1.0 mg/dL) Collection Type: Clean Catch Specific [place] 1.022 (1.003-1.030 ) Protein Pos 3+ A [...] (-<1.0 mg/dL) Collection Type: Clean Catch Specific [place] 1.024 (1.003-1.030 ) Protein Pos 3+ A (Negative ) pH, Urine 7.0 (5.0-8.0 ) Nitrites Negative (Negative ) Leukocytes Esterase Negative (Negative ) Ketones, Urine Negative (Negative ) Glucose Pos 1+ A (Negative ) Color Yellow Blood Trace A (Negative ) Bilirubin Negative (Negative ) Appearance Clear
--- OUTSIDE RECORDS SUMMARY | 2016-09-11 13:41 | XMS REPORT | Continuity of Care Document ---
Author Author [facility] Organization [facility] Address Unknown Phone Unavailable Support Name Relationship Address Phone ISIDRO SHEIKH MD Caregiver [address] [facility] [place] [phone] JIMI NATARAJAN MD Caregiver [address] [place] [phone] MASOUD FERGUSON Next Of Kin [address] [place] [address] Insurance Providers Payer Name Policy Number Subscriber Name Relationship [employer] [id number] Ben Ferguson 16 Self Problems Medical Problems [...] Tab PO DAILY 06/03/10 10/07/10 Discontinued Saw [place] Fruit 450 Mg PO TWICE A DAY [...] F (96.8 - 99.1) Temperature (Calculated Celsius) 36.03029 degrees C (36.0 - 37.3) Pulse Rate [...] Body Fluid RBC July 29, 2011 2:50pm 17696 /MM3 - Body Fluid Specific [place] July 29, 2011 2:50pm 1.022 - Body [...] 117 ng/ml - Cyclosporine performed at [facility] [address], [address] [place], [place] [id number] Director Basia Laura MD D-Dimer January 10, [...] 11:57am 74 U/L N 55-170 CALL RESULTS [phone] Total Iron Binding Capacity February 14, 2013 [...] 6:40am 208.0 MG/DL H 0.0-11.0 Urine Specific [place] January 13, 2014 9:55pm 1.025 - Has specimen been collected/obtained? Y Urine Squamous Epithelial Cells August 01, 2013 11:57am 0-5 - CALL RESULTS [phone] Urine Turbidity January 13, 2014 9:55pm Clear [...] 01, 2013 8:57am LAB TEST FORM REQUEST [id number] - Urine Protein/Creatinine Ratio 24hr November 01, [...] as: SEND OUT UNABLE TO PERFORM TEST, [place] NO LONGER PERFORMS RF ON THOROCENTESIS FLUID [...] potentially toxic. Vitamin D, 25-Hydroxy performed at [facility] Reference Lab, [facility] [place] [address] Finishing Range Operator Basia Laura MD 25-Hydroxy Vitamin D2 October 18, 2013 7:50am <7 ng/mL - 25-Hydroxy Vitamin D3 October 18, 2013 7:50am 26 ng/mL - Icterus Index January 13, 2014 7:24pm < 2 0-7 VC-Dsb-A-Type Natriuretic Peptide January 13, 2014 7:24pm 372 [...] 2011 2:50pm Name: BEN FERGUSON Unit #: [id number] : [id number] Sex: M Loc / Svc: ED DOS: 01/10/14 Signed Report #: [id number] DIAGNOSTIC IMAGING REPORT TYPE OF EXAM: CHEST, [...] Encounters Encounter Location Date/Time Departed Emergency Room [facility] 01/13/14 7:21pm Departed Emergency Room [facility] 01/10/14 8:52pm Discharged Recurring [facility] 08/16/13 8:06am Recent Diagnosis
--- OUTSIDE RECORDS SUMMARY | 2016-09-11 13:41 | XMS REPORT | Continuity of Care Document ---
Author Author [facility] L[facility] Organization [facility] Address Unknown Phone Unavailable Support Name Relationship Address Phone ISIDRO SHEIKH MD Caregiver [address] [facility] [address] [place] [phone] JIMI NATARAJAN MD Caregiver [address] [place] [phone] MASOUD FERGUSON Next Of Kin [address] [place] [address] Insurance Providers Payer Name Policy Number Subscriber Name Relationship [employer] [id number] Ben Ferguson 16 Self Advance Directives Directive [...] Tab PO DAILY 06/03/10 10/07/10 Discontinued Saw [place] Fruit 450 Mg PO TWICE A DAY [...] F (96.8 - 99.1) Temperature (Calculated Celsius) 36.79455 degrees C (36.0 - 37.3) Pulse Rate [...] Body Fluid RBC July 29, 2011 2:50pm 49995 /MM3 - Body Fluid Specific [place] July 29, 2011 2:50pm 1.022 - Body [...] 7:58am 117 ng/ml - Cyclosporine performed at [facility] [address] [facility], [address] [place], [place] [id number] Director Basia Laura MD D-Dimer January 10, [...] 11:57am 74 U/L N 55-170 CALL RESULTS [phone] Total Iron Binding Capacity February 14, 2013 [...] 11:57am Cult not indicated - CALL RESULTS [phone] Urine Glucose (UA) January 10, 2014 11:20pm [...] 6:40am 208.0 MG/DL H 0.0-11.0 Urine Specific [place] January 10, 2014 11:20pm >=1.030 H - Has specimen been collected/obtained? Y Urine Squamous Epithelial Cells August 01, 2013 11:57am 0-5 - CALL RESULTS [phone] Urine Turbidity January 10, 2014 11:20pm Clear [...] 01, 2013 8:57am LAB TEST FORM REQUEST [id number] - Urine Protein/Creatinine Ratio 24hr November 01, [...] as: SEND OUT UNABLE TO PERFORM TEST, [place] NO LONGER PERFORMS RF ON THOROCENTESIS FLUID [...] potentially toxic. Vitamin D, 25-Hydroxy performed at [facility] Reference Lab, [facility] [place] [address] Theater Company Producer Basia Laura MD 25-Hydroxy Vitamin D2 October 18, 2013 7:50am <7 ng/mL - 25-Hydroxy Vitamin D3 October 18, 2013 7:50am 26 ng/mL - Icterus Index January 10, 2014 9:43pm < 2 0-7 PW-Qmb-I-Type Natriuretic Peptide January 27, 2013 10:55pm 1170 [...] Encounters Encounter Location Date/Time Departed Emergency Room [facility] 01/10/14 8:52pm Discharged Recurring [facility] 08/16/13 8:06am Recent Diagnosis
--- OUTSIDE RECORDS SUMMARY | 2016-09-11 13:42 | XMS REPORT | Continuity of Care Document ---
Author Author [facility] Organization [facility] Address Unknown Phone Unavailable Allergies Active Description Code Type Severity Reaction Onset Reported/Identified Relationship to Patient Clinical Status Yes DEMEROL [id number] Drug Allergy N/A N/A Yes LORTAB [id number] Drug Allergy N/A N/A Yes acetaminophen acetaminophen [...] Status Pt. Type Provider Facility Loc./Unit Complaint [id number] 02/01/2013 18:24:00 2012 20:55:00 DIS Inpatient Orion Fierro MD [facility] on [facility] F5[facility] [id number] 12/22/2012 06:50:00 2012 12:00:00 DIS Outpatient Carleen Curtis MDMichael) [facility] on [address] [facility] [id number] 08/29/2013 13:30:00 Document Registration [id number] 08/02/2013 13:00:00 Document Registration
--- NOTE | 2016-09-11 14:06 | DI ---
Indication: ITS.REASON: left lower extremity edema, recent knee replacement surgery PROCEDURE: US VENOUS DUPLEX, LOWER EXT LT: Encounter: Initial Comparison: January 28, 2013 Technique: Color Doppler duplex and grayscale sonographic imaging of the left lower extremity was performed. Findings: There is no evidence for acute deep venous thrombosis in the left thigh. Specifically, serial graded compression was performed from the inguinal ligament to the popliteal bifurcation, on the left thigh, demonstrating appropriate compressibility of the deep venous system. In addition, color and pulsed Doppler demonstrate appropriate spontaneous flow, variation with respiration, and augmentation with calf compression. At the ankle, normal flow is identified in the posterior tibial veins; these vessels are also normal in caliber. Impression: No evidence of acute DVT in the left lower limb. .
--- NOTE | 2016-09-11 14:07 | NUR ---
STATUS PATIENT RESTING IN BED. MONTIOR READS SINUS RHYTHM. PATIENT DENIES PAIN OR SOA. AT BEDSIDE. CALL LIGHT IN REACH.
[2016-09-11 14:40] VITALS: BP 110/63; PULSE 85; RESP 16; TEMP 97.2; O2SAT 97
--- NOTE | 2016-09-11 14:40 | NUR ---
DISMISS INSTRUCTIONS REVIEWED AND GIVEN TO PATIENT VERBALIZED UNDERSTANDING PATIENT STABLE, AMBULATES TO EXIT AND LEAVES WITH SPOUSE
== END 2016-09-11 14:40 | disposition home or self-care (01) ==
LOC: ED 12:06
DX: I48.0 Paroxysmal atrial fibrillation (principal); R60.0 Localized edema; I11.0 Hypertensive heart disease with heart failure; I50.9 Heart failure, unspecified
CPT/HCPCS: 36000; 80048; 84484; 85025; 93005